=== PATIENT | female | born 1945 | race Caucasian/White ===

== ENCOUNTER → 2016-07-17 | Outpatient (CLI) | payer MEDICARE, OTHER ==
[2016-07-17 12:11] LABS: CH 31.4; CHCM 34.2; HCT 46.5 % (34.0-46.0); HDW 2.64; HGB 15.3 gm/dL (11.4-16.0); MCH 30.2 pg (25.0-35.0); MCHC 32.8 g/dL (31.0-37.0); MCV 92.1 fL (80.0-100.0); Mean Platelet Volume 7.7; RBC 5.05 m/uL (3.80-5.40); WBC 3.1 k/uL (3.8-10.6); WBC (Perox) 3.07
[2016-07-17 12:28] LABS: ALT 30 U/L (9-52); AST 27 U/L (14-36); Alkaline Phosphatase 83 U/L (38-126); Anion Gap 11 mmol/L; Blood Urea Nitrogen 12 mg/dL (7-17); Carbon Dioxide 29 mmol/L (22-30); Chloride 98 mmol/L (98-107); Glucose 99 mg/dL (74-99); Non-African American GFR(MDRD) >60 (>60 ml/min/1.73 sqM); Potassium 4.3 mmol/L (3.5-5.1); Sodium 138 mmol/L (137-145); Total Bilirubin 0.7 mg/dL (0.2-1.3); Total Protein 6.8 g/dL (6.3-8.2)
[2016-07-17 14:48] LABS: Add Differential Manual Differential
[2016-07-17 14:56] LABS: Nucleated Red Blood Cells 0 /100 WBC (0-0); Total Cells Counted 100
[2016-07-17 15:00] LABS: Manual Review Performed
== END ==
LOC: LABWHC1 11:42
PROVIDERS: ATTEND Internal Medicine Gastroenterology
DX: R94.5 Abnormal results of liver function studies (principal)
CPT/HCPCS: 36415; 80053; 85025

== ENCOUNTER → 2016-07-27 | Outpatient (CLI) | payer MEDICARE, OTHER ==
[2016-07-27 12:32] LABS: Basophils # (A) 0.1 k/uL (0-0.2); Basophils % (A) 1 %; CH 31.1; CHCM 33.5; Eosinophils # (A) 0.2 k/uL (0-0.7); Eosinophils % (A) 3 %; HCT 46.6 % (34.0-46.0); HDW 2.57; HGB 15.2 gm/dL (11.4-16.0); Luc # (Auto) 0.29; Luc % (Auto) 5; Lymphocytes % (A) 31 %; MCH 30.3 pg (25.0-35.0); MCHC 32.5 g/dL (31.0-37.0); MCV 93.2 fL (80.0-100.0); Mean Platelet Volume 7.5; Monocytes # (A) 0.5 k/uL (0-1.0); Monocytes % (A) 8 %; Neutrophils # (A) 3.4 k/uL (1.3-7.7); Neutrophils % (A) 53 %; RDW 13.1 % (11.5-15.5); WBC 6.5 k/uL (3.8-10.6); WBC (Perox) 6.75
[2016-07-27 14:06] LABS: Erythrocyte Sedimentation Rate 2 mm/hr (0-20)
== END | disposition home or self-care (01) ==
LOC: LABWHC1 11:54
PROVIDERS: ATTEND Orthopaedic Surgery
DX: Z09 Encounter for follow-up examination after completed treatment for conditions other than malignant neoplasm (principal); Z96.651 Presence of right artificial knee joint
CPT/HCPCS: 36415; 85025; 85652; 86140

== ENCOUNTER → 2016-08-02 | Outpatient (CLI) | payer MEDICARE, OTHER ==
--- NOTE | 2016-08-02 13:44 | NM ---
EXAMINATION TYPE: NM bone/joint limited DATE OF EXAM: 08/02/2016 1:39 PM COMPARISON: NONE HISTORY: Right knee pain for one year TECHNIQUE: After the intravenous administration of 25.5 mCi Tc 99m MDP. Images acquired 3 hours pos t injection. Multiple views of bilateral knees are submitted. Abnormal uptake involving the medial compartment of the left knee is compatible with osteoarthritis. There is a photopenic defect involving the right knee compatible with previous prostheses. Mild uptak e surrounding the femoral compartment likely is postsurgical. More intense area of abnormal uptake al roger the lateral margin of the tibial component of the prostheses also may BE postsurgical if there is concern for infection or loosening correlation with tagged WBC study could be obtained. IMPRESSION: 1. Probable postoperative change involving the right knee. Uptake along the lateral compartment of th e tibial component most likely is postsurgical but could be correlated clinically if there is concern for infection or loosening. Tagged WBC study could be obtained as clinically warranted. 2. Osteoarthritis involving the left knee
== END | disposition home or self-care (01) ==
LOC: RADNMMAIN 09:58
PROVIDERS: ATTEND Orthopaedic Surgery
DX: M17.12 Unilateral primary osteoarthritis, left knee (principal); Z96.651 Presence of right artificial knee joint
CPT/HCPCS: 78300; A9503

== ENCOUNTER → 2016-09-28 | Outpatient (CLI) | payer MEDICARE, OTHER ==
--- NOTE | 2016-09-28 13:27 | US ---
EXAMINATION TYPE: US liver DATE OF EXAM: 09/28/2016 9:53 AM COMPARISON: 09/23/2015 CLINICAL HISTORY: 71-year-old female K74.6 Cirrhosis of liver. TECHNIQUE: Multiple sonographic images of the right upper quadrant were obtained. FINDINGS: Liver Length: 14.2 cm CBD: 0.3 cm Right Kidney: 9.1 x 3.7 x 3.6 cm Pancreas: wnl Liver: There is a small 6 x 5 x 5 mm echogenic focus small probable hemangioma within the left hepati c lobe previously measured about 8 x 6 x 5 mm, not significantly changed. No other focal lesion is se en. Gallbladder: Surgically absent CBD: wnl Right Kidney: No hydronephrosis IMPRESSION: An echogenic lesion within the left hepatic lobe measures 6 mm, essentially unchanged from 09/23/2015 most suggestive of a hemangioma. No sonographic evidence for hepatoma.
== END | disposition home or self-care (01) ==
LOC: RADUSWWP 09:19
PROVIDERS: ATTEND Internal Medicine Gastroenterology
DX: K76.9 Liver disease, unspecified (principal)
CPT/HCPCS: 76705

== ENCOUNTER → 2016-10-20 | Outpatient (CLI) | payer MEDICARE, OTHER ==
[2016-10-20 12:52] LABS: Basophils % (A) 1 %; CH 31.6; CHCM 33.6; Eosinophils # (A) 0.2 k/uL (0-0.7); Eosinophils % (A) 4 %; HCT 45.2 % (34.0-46.0); HDW 2.33; HGB 14.9 gm/dL (11.4-16.0); Luc # (Auto) 0.16; Luc % (Auto) 3; Lymphocytes # (A) 1.8 k/uL (1.0-4.8); Lymphocytes % (A) 36 %; MCH 31.2 pg (25.0-35.0); MCV 94.6 fL (80.0-100.0); Mean Platelet Volume 8.4; Monocytes # (A) 0.4 k/uL (0-1.0); Monocytes % (A) 8 %; Neutrophils # (A) 2.4 k/uL (1.3-7.7); Neutrophils % (A) 48 %; RBC 4.78 m/uL (3.80-5.40); RDW 13.6 % (11.5-15.5); WBC (Perox) 5.12
[2016-10-20 12:53] LABS: ALT 29 U/L (9-52); AST 27 U/L (14-36); Alkaline Phosphatase 87 U/L (38-126); Anion Gap 10 mmol/L; Blood Urea Nitrogen 16 mg/dL (7-17); Calcium 9.3 mg/dL (8.4-10.2); Carbon Dioxide 25 mmol/L (22-30); Chloride 106 mmol/L (98-107); Glucose 100 mg/dL (74-99); Non-African American GFR(MDRD) >60 (>60 ml/min/1.73 sqM); Potassium 4.5 mmol/L (3.5-5.1); Sodium 141 mmol/L (137-145)
[2016-10-20 12:56] LABS: Prothrombin Time 10.2 sec (9.0-12.0)
== END | disposition home or self-care (01) ==
LOC: LABWHC1 12:24
PROVIDERS: ATTEND Internal Medicine Gastroenterology
DX: K74.60 Unspecified cirrhosis of liver (principal)
CPT/HCPCS: 36415; 80053; 82105; 85025; 85610

== ENCOUNTER → 2016-10-20 | Outpatient (CLI) | payer MEDICARE, OTHER ==
--- NOTE | 2016-10-20 14:09 | BD ---
EXAMINATION TYPE: MG DEXA axial skeleton. DATE OF EXAM: 10/20/2016 COMPARISON: NONE CLINICAL HISTORY: Postmenopausal female. Height: 5 FT 1 1/2 IN Weight: 138 FRAX RISK QUESTIONS: Alcohol (3 or more units per day): NO Family History (Parent hip fracture): NO Glucocorticoids (More than 3mos): NO (Ex: prednisone, prednisolone, methylprednisolone, dexamethasone, and hydrocortisone). History of Fracture in Adulthood: NO Secondary Osteoporosis: 1. Type 1 Diabetes: NO 2. Hyperthyroidism: NO 3. Menopause before 45: NO 4. Malnutrition: NO 5. Chronic liver disease: HIGH LIVER ENZYMES Rheumatoid Arthritis: NO Current Tobacco Use: NO RISK FACTORS HISTORY OF: Active: FAIRLY Postmenopausal woman: AGE 54 MEDICATIONS: Additional Medications: NONE EXAM MEASUREMENTS: Bone mineral densitometry was performed using the [employer]. Bone mineral density as measured about the Lumbar spine is: ----- L1-L4(G/cm2): 1.056 T Score Values are as follows: ----- L2: -0.9 ----- L3: -1.1 ----- L4: -1.1 ----- L1-L4: -1.0 BASELINE Bone mineral density about the R hip (g/cm2): 0.857 Bone mineral density about the L hip (g/cm2): 0.837 T Score values are as follows: -----R Neck: -1.3 -----L Neck: -1.4 -----R Total: -1.3 -----L Total: -1.4 BASELINE IMPRESSION: Osteopenia (T Score between -2.5 and -1 as noted by T score values There is slightly increased risk of fracture and the patient may be considered for treatment. Re-Screen 2-5 years. NOTE: T-SCORE=SD OF THE YOUNG ADULT MEAN.
--- NOTE | 2016-10-23 07:59 | MM ---
Reason for exam: screening (asymptomatic). Last mammogram was performed 1 year and 1 month ago. History: Patient is postmenopausal. Benign excisional biopsy of the left breast, July 2010. Took estrogen for 3 years. Took progesterone for 3 years. Physical Findings: A clinical breast exam by your physician is recommended on an annual basis and results should be correlated with mammographic findings. MG Screening Mammo w CAD Bilateral CC and MLO view(s) were taken. Prior study comparison: September 23, 2015, bilateral MG 3d screening mammo w/cad. May 20, 2014, bilateral MG screening mammo w CAD. There are scattered fibroglandular densities. Finding: There are typically benign calcifications. No significant changes in finding since September 23, 2015 and May 20, 2014. ASSESSMENT: Benign, BI-RAD 2 RECOMMENDATION: Routine screening mammogram of both breasts in 1 year.
== END | disposition home or self-care (01) ==
LOC: RADMAMWWP 12:39
PROVIDERS: ATTEND Family Medicine
DX: Z12.31 Encounter for screening mammogram for malignant neoplasm of breast (principal); M85.80 Other specified disorders of bone density and structure, unspecified site; Z78.0 Asymptomatic menopausal state
CPT/HCPCS: 77080; G0202

== ENCOUNTER → 2017-01-19 | Outpatient (CLI) | payer MEDICARE, OTHER ==
[2017-01-19 09:20] LABS: Basophils % (A) 1 %; CH 30.8; CHCM 33.5; Eosinophils # (A) 0.2 k/uL (0-0.7); Eosinophils % (A) 5 %; HCT 45.6 % (34.0-46.0); HDW 2.42; HGB 15.3 gm/dL (11.4-16.0); Luc # (Auto) 0.16; Luc % (Auto) 3; Lymphocytes # (A) 1.7 k/uL (1.0-4.8); Lymphocytes % (A) 36 %; MCH 30.9 pg (25.0-35.0); MCHC 33.5 g/dL (31.0-37.0); MCV 92.4 fL (80.0-100.0); Mean Platelet Volume 7.1; Monocytes # (A) 0.3 k/uL (0-1.0); Monocytes % (A) 7 %; Neutrophils # (A) 2.2 k/uL (1.3-7.7); Neutrophils % (A) 48 %; RBC 4.93 m/uL (3.80-5.40); RDW 13.3 % (11.5-15.5); WBC 4.7 k/uL (3.8-10.6); WBC (Perox) 5.15
[2017-01-19 09:33] LABS: ALT 32 U/L (9-52); AST 24 U/L (14-36); Alkaline Phosphatase 81 U/L (38-126); Anion Gap 9 mmol/L; Blood Urea Nitrogen 13 mg/dL (7-17); Calcium 9.4 mg/dL (8.4-10.2); Carbon Dioxide 27 mmol/L (22-30); Chloride 104 mmol/L (98-107); Glucose 93 mg/dL (74-99); Non-African American GFR(MDRD) >60 (>60 ml/min/1.73 sqM); Potassium 4.5 mmol/L (3.5-5.1); Sodium 140 mmol/L (137-145); Total Bilirubin 1.2 mg/dL (0.2-1.3); Total Protein 6.9 g/dL (6.3-8.2)
[2017-01-19 09:39] LABS: Prothrombin Time 10.3 sec (9.0-12.0)
== END | disposition home or self-care (01) ==
LOC: LABWHC1 08:52
PROVIDERS: ATTEND Internal Medicine Gastroenterology
DX: K74.60 Unspecified cirrhosis of liver (principal)
CPT/HCPCS: 36415; 80053; 82105; 85025; 85610

== ENCOUNTER → 2017-05-22 | Outpatient (CLI) | payer MEDICARE, OTHER ==
[2017-05-22 11:51] LABS: ALT 37 U/L (9-52); AST 24 U/L (14-36); Albumin 4.3 g/dL (3.5-5.0); Alkaline Phosphatase 74 U/L (38-126); Anion Gap 9 mmol/L; Blood Urea Nitrogen 14 mg/dL (7-17); Calcium 9.7 mg/dL (8.4-10.2); Carbon Dioxide 28 mmol/L (22-30); Chloride 102 mmol/L (98-107); Glucose 96 mg/dL (74-99); Potassium 4.6 mmol/L (3.5-5.1); Sodium 139 mmol/L (137-145); Total Bilirubin 1.1 mg/dL (0.2-1.3); Total Protein 6.7 g/dL (6.3-8.2)
[2017-05-22 12:25] LABS: HCT 43.8 % (34.0-46.0); HGB 14.4 gm/dL (11.4-16.0); MCH 30.4 pg (25.0-35.0); MCHC 32.8 g/dL (31.0-37.0); MCV 92.5 fL (80.0-100.0); Mean Platelet Volume 8.1; Platelet Count 105 k/uL (150-450); RBC 4.74 m/uL (3.80-5.40); WBC 4.9 k/uL (3.8-10.6)
== END | disposition home or self-care (01) ==
LOC: LABWHC1 11:03
PROVIDERS: ATTEND Internal Medicine Gastroenterology
DX: K74.60 Unspecified cirrhosis of liver (principal)
CPT/HCPCS: 36415; 80053; 82105; 85027; 85610

== ENCOUNTER → 2017-07-20 | Outpatient (CLI) | payer MEDICARE, OTHER ==
--- NOTE | 2017-07-20 12:50 | XR ---
Lumbosacral spine HISTORY: Back pain 5 views of the lumbosacral spine Lumbar vertebral bodies show preserved height. Bone mineralization is reduced. No evident spondylolys is. Surgical clips noted incidentally in the right upper quadrant. There is loss of disc height prese nt at L5-S1. Anterolisthesis grade 1 L4-5. Sclerosis present in the posterior elements of the lower l umbar spine. IMPRESSION: Degenerative disc disease and spondylolisthesis. Facet arthropathy and osteopenia. Postop changes.
== END ==
LOC: RADXRMAIN 12:22
PROVIDERS: ATTEND Family Medicine
DX: M51.37 Other intervertebral disc degeneration, lumbosacral region (principal); M43.16 Spondylolisthesis, lumbar region; M46.86 Other specified inflammatory spondylopathies, lumbar region; M85.88 Other specified disorders of bone density and structure, other site; Z98.890 Other specified postprocedural states
CPT/HCPCS: 72110

== ENCOUNTER → 2017-09-03 | Outpatient (CLI) | payer MEDICARE, OTHER ==
--- NOTE | 2017-09-03 09:15 | US ---
EXAMINATION TYPE: US liver DATE OF EXAM: 09/03/2017 COMPARISON: 09/28/2016 and 03/24/2014 CLINICAL HISTORY: K74.60 Cirrhosis of Liver. EXAM MEASUREMENTS: Liver Length: 11.6 cm Gallbladder Wall: Surgically absent CBD: 0.2 cm Right Kidney: 9.5 x 3.6 x 4.8 cm Pancreas: wnl Liver: hyperechoic focus in left lobe, seen previously measuring 0.5 x 0.3 x 0.8cm, (this measured 6 x 5 x 5 mm on the exam of 09/28/2016 and measured about 8 x 6 x 5 mm on the exam of 03/24/2014). Given differences in size measurement this is similar to priors. Hepatope joelle flow noted. There is a slightly coarsened heterogenous echotexture of the hepatic parenchyma. Thi s finding somewhat limits evaluation for masses. Gallbladder: Surgically absent Evidence for sonographic Heath's sign: no CBD: wnl Right Kidney: wnl IMPRESSION: 1. Overall similar size of the solitary hyperechoic left hepatic lobe focus in comparison to exam of 03/24/2014 suggesting a benign etiology such as a hemangioma. 2. Slightly coarsened hepatic echotexture compatible with the patient's known underlying hepatocellul ar disease. No new masses are seen.
[2017-09-03 10:10] LABS: HCT 45.2 % (34.0-46.0); HGB 15.2 gm/dL (11.4-16.0); MCH 30.4 pg (25.0-35.0); MCHC 33.6 g/dL (31.0-37.0); MCV 90.6 fL (80.0-100.0); Mean Platelet Volume 8.7; Platelet Count 141 k/uL (150-450); RBC 4.99 m/uL (3.80-5.40); WBC 5.1 k/uL (3.8-10.6)
[2017-09-03 10:31] LABS: Albumin 4.3 g/dL (3.5-5.0); Calcium 9.9 mg/dL (8.4-10.2); Potassium 4.9 mmol/L (3.5-5.1); Total Protein 6.7 g/dL (6.3-8.2)
== END ==
LOC: RADUSWWP 08:14
PROVIDERS: ATTEND Internal Medicine Gastroenterology
DX: K74.60 Unspecified cirrhosis of liver (principal)
CPT/HCPCS: 76705; 80053; 82105; 85027; 85610

== ENCOUNTER → 2017-10-22 | Outpatient (CLI) | payer MEDICARE, OTHER | END | disposition home or self-care (01) | LOC: LABWHC1 11:15 | PROVIDERS: ATTEND Podiatrist Foot & Ankle Surgery | DX: N19 Unspecified kidney failure (principal) | CPT/HCPCS: 36415; 82565; 84520 ==

== ENCOUNTER → 2017-10-24 | Outpatient (CLI) | payer MEDICARE, OTHER ==
--- NOTE | 2017-10-24 13:17 | MM ---
Reason for exam: screening (asymptomatic). Last mammogram was performed 1 year ago. History: Patient is postmenopausal. Benign excisional biopsy of the left breast, July 2010. Took estrogen for 3 years. Took progesterone for 3 years. Physical Findings: A clinical breast exam by your physician is recommended on an annual basis and results should be correlated with mammographic findings. MG 3D Screening Mammo W/Cad Bilateral CC and MLO view(s) were taken. Prior study comparison: October 20, 2016, bilateral MG screening mammo w CAD. September 23, 2015, bilateral MG 3d screening mammo w/cad. There are scattered fibroglandular densities. There is a stable right retroareolar mass. Benign appearing bilateral calcifications. No suspicious abnormality. Post biopsy change on the left breast. No significant changes when compared with prior studies. ASSESSMENT: Benign, BI-RAD 2 RECOMMENDATION: Routine screening mammogram of both breasts in 1 year.
== END | disposition home or self-care (01) ==
LOC: RADMAMWWP 09:53
PROVIDERS: ATTEND Family Medicine
DX: Z12.31 Encounter for screening mammogram for malignant neoplasm of breast (principal)
CPT/HCPCS: 77063; 77067

== ENCOUNTER 2017-10-26 09:19 | Day surgery (SDC) | payer MEDICARE, OTHER ==
[2017-10-24 09:31] VITALS: BMI 25.6
[~2017-10-26 09:19] MED LIST: LACTATED RINGERS 1,000 ML IV SCH
[2017-10-26 10:00] VITALS: RESP 16; TEMP 97.8
[2017-10-26] MEDS ORDERED: LIDOCAINE 1% 20 ML VIAL (10MG/ML) FOR IV START INTRADERMA ONE (10:01)
[2017-10-26] MEDS ORDERED: LIDOCAINE 1% INJ 10MG/ML (20 ML MDV) ONE (10:34)
[2017-10-26] MEDS ORDERED: PROPOFOL 10 MG/ML 20 ML VIAL IV ONE (10:34)
--- NOTE | 2017-10-26 10:56 | P.PCN ---
Date of Procedure: 10/26/17 Procedure(s) Performed: Brief history: Patient is a pleasant 72-year-old white female, scheduled for an elective upper endoscopy as well as colonoscopy as a part of evaluation of liver cirrhosis and screening for colorectal neoplasia. Procedure performed: Esophagogastroduodenoscopy with biopsy Colonoscopy Preoperative diagnosis: Liver cirrhosis/screening for esophageal varices. Screening for colon cancer Anesthesia: MAC Procedure: After informed consent was obtained from the patient was brought into the endoscopy unit and IV sedation was administered by anesthesia under continuous monitoring. Initially upper endoscopy was done. The Olympus GF 160 video endoscope was inserted inserted into the mouth and esophagus intubated without any difficulty and was gradually advanced into the stomach and duodenum and carefully examined. The bulb and second part of the duodenum appeared normal. The scope was then withdrawn into the stomach adequately insufflated with air and upon careful examination the antrum had mild gastritis and biopsies were done from this area. The body, cardia and fundus appeared normal. The scope was then withdrawn into the esophagus. small hiatal hernia noted. The GE junction was located at 40 cm to the incisors. It appeared regular witsuperficial erosions consistent with LA grade B reflux esophagitis. Rest of the esophagus appeared normal. Patient tolerated the procedure well. At this time the patient continued to remain sedation. Initial digital rectal examination was normal. Olympus CF 160 video colonoscope was then inserted into the rectum and gradually advanced to the cecum without any difficulty. Careful examination was performed as the scope was gradually being withdrawn. The prep was excellent. The cecum, ascending colon, transverse colon, descending colon, sigmoid colon and rectum appeared normal. scattered sigmoid diverticulosis seen. Retroflexion was performed in the rectum and no lesions were noted. Patient tolerated the procedure well. Impression: 1. Upper endoscopy revealed mild gastritis, small hiatal hernia and grade B reflux esophagitis 2. Colonoscopy revealed scattered sigmoid diverticulosis. Recommendations: Findings of this examination were discussed with the patient as well as her family. She was advised to follow with the biopsy results. She can have a repeat colonoscopy in 10 years.
[2017-10-26 11:31] VITALS: BP 134/68; PULSE 77
== END 2017-10-26 11:44 | disposition home or self-care (01) ==
LOC: ORWHC2ENDO 09:19
PROVIDERS: ATTEND Internal Medicine Gastroenterology
DX: Z12.11 Encounter for screening for malignant neoplasm of colon (principal); K29.70 Gastritis, unspecified, without bleeding; K44.9 Diaphragmatic hernia without obstruction or gangrene; K21.0 Gastro-esophageal reflux disease with esophagitis; K57.30 Diverticulosis of large intestine without perforation or abscess without bleeding; K74.60 Unspecified cirrhosis of liver; K76.0 Fatty (change of) liver, not elsewhere classified; J44.9 Chronic obstructive pulmonary disease, unspecified; Z79.82 Long term (current) use of aspirin; Z79.899 Other long term (current) drug therapy; Z88.6 Allergy status to analgesic agent; Z88.0 Allergy status to penicillin; Z88.2 Allergy status to sulfonamides; Z88.8 Allergy status to other drugs, medicaments and biological substances
CPT/HCPCS: 88305; 43239; J2001; J2704; G0121; 45378

== ENCOUNTER → 2017-12-11 | Outpatient (CLI) | payer MEDICARE, OTHER ==
[2017-12-11 11:14] LABS: HCT 43.4 % (34.0-46.0); HGB 14.5 gm/dL (11.4-16.0); MCH 30.8 pg (25.0-35.0); MCHC 33.5 g/dL (31.0-37.0); Mean Platelet Volume 7.4; Platelet Count 144 k/uL (150-450); RBC 4.72 m/uL (3.80-5.40); RDW 13.5 % (11.5-15.5); WBC 4.9 k/uL (3.8-10.6)
[2017-12-11 11:15] LABS: Prothrombin Time 9.7 sec (9.0-12.0)
[2017-12-11 11:23] LABS: ALT 31 U/L (9-52); AST 24 U/L (14-36); Albumin 4.1 g/dL (3.5-5.0); Alkaline Phosphatase 95 U/L (38-126); Anion Gap 8 mmol/L; Blood Urea Nitrogen 14 mg/dL (7-17); Calcium 9.6 mg/dL (8.4-10.2); Carbon Dioxide 27 mmol/L (22-30); Chloride 106 mmol/L (98-107); Glucose 95 mg/dL (74-99); Potassium 4.8 mmol/L (3.5-5.1); Sodium 141 mmol/L (137-145); Total Bilirubin 0.5 mg/dL (0.2-1.3); Total Protein 6.3 g/dL (6.3-8.2)
== END | disposition home or self-care (01) ==
LOC: LABWHC1 10:28
PROVIDERS: ATTEND Internal Medicine Gastroenterology
DX: K74.60 Unspecified cirrhosis of liver (principal)
CPT/HCPCS: 36415; 80053; 82105; 85027; 85610

== ENCOUNTER → 2018-02-25 | Outpatient (CLI) | payer MEDICARE, OTHER ==
[2018-02-25 15:09] LABS: HCT 42.7 % (34.0-46.0); HGB 14.8 gm/dL (11.4-16.0); MCH 31.4 pg (25.0-35.0); MCHC 34.6 g/dL (31.0-37.0); MCV 90.7 fL (80.0-100.0); Mean Platelet Volume 8.3; Platelet Count 136 k/uL (150-450); RBC 4.71 m/uL (3.80-5.40); RDW 13.3 % (11.5-15.5); WBC 6.5 k/uL (3.8-10.6)
[2018-02-25 15:17] LABS: ALT 28 U/L (9-52); AST 25 U/L (14-36); Albumin 4.3 g/dL (3.5-5.0); Alkaline Phosphatase 96 U/L (38-126); Anion Gap 10 mmol/L; Blood Urea Nitrogen 14 mg/dL (7-17); Calcium 9.7 mg/dL (8.4-10.2); Carbon Dioxide 25 mmol/L (22-30); Chloride 104 mmol/L (98-107); Glucose 101 mg/dL (74-99); Potassium 4.5 mmol/L (3.5-5.1); Prothrombin Time 9.7 sec (9.0-12.0); Sodium 139 mmol/L (137-145); Total Bilirubin 0.6 mg/dL (0.2-1.3); Total Protein 7.1 g/dL (6.3-8.2)
== END | disposition home or self-care (01) ==
LOC: LABWHC1 14:47
PROVIDERS: ATTEND Internal Medicine Gastroenterology
DX: K74.60 Unspecified cirrhosis of liver (principal)
CPT/HCPCS: 36415; 80053; 82105; 85027; 85610

== ENCOUNTER → 2018-07-02 | Outpatient (CLI) | payer MEDICARE, OTHER ==
[2018-07-02 14:33] LABS: HCT 44.6 % (34.0-46.0); HGB 14.5 gm/dL (11.4-16.0); MCH 30.7 pg (25.0-35.0); MCHC 32.6 g/dL (31.0-37.0); MCV 94.2 fL (80.0-100.0); Mean Platelet Volume 8.3; Platelet Count 120 k/uL (150-450); RBC 4.73 m/uL (3.80-5.40); RDW 13.4 % (11.5-15.5); WBC 4.9 k/uL (3.8-10.6)
[2018-07-02 14:40] LABS: INR 0.9 (<1.2); Prothrombin Time 9.9 sec (9.0-12.0)
[2018-07-02 18:52] LABS: Albumin 4.5 g/dL (3.80-4.90); Albumin/Globulin Ratio 2.37 (1.60-3.17); Anion Gap 5.1 mmol/L (4.00-12.00); Calcium 9.4 mg/dL (8.7-10.3); Carbon Dioxide 29.9 mmol/L (21.6-31.8); Globulin 1.9 g/dL (1.6-3.3); Potassium 4.7 mmol/L (3.5-5.5); Total Bilirubin 0.9 mg/dL (0.3-1.2); Total Protein 6.4 g/dL (6.2-8.2)
== END | disposition home or self-care (01) ==
LOC: LABWHC1 12:55
PROVIDERS: ATTEND Internal Medicine Gastroenterology
DX: K74.60 Unspecified cirrhosis of liver (principal)
CPT/HCPCS: 36415; 80053; 82105; 85027; 85610

== ENCOUNTER → 2018-09-03 | Outpatient (CLI) | payer MEDICARE, OTHER ==
--- NOTE | 2018-09-03 08:55 | US ---
EXAMINATION TYPE: US liver DATE OF EXAM: 09/03/2018 COMPARISON: US CLINICAL HISTORY: K74.60 Cirrhosis of Liver. H/O cirrhosis EXAM MEASUREMENTS: Liver Length: 13.2 cm CBD: 0.5 cm Right Kidney: 10.0 x 4.0 x 4.7 cm Pancreas: wnl Liver: Slightly heterogeneous, otherwise appeared wnl Gallbladder: Surgically absent Evidence for sonographic Heath's sign: No CBD: wnl Right Kidney: wnl IMPRESSION: 1. Mild fatty hepatic infiltration suggested versus diffuse hepatocellular disease..
== END | disposition home or self-care (01) ==
LOC: RADUSWWP 08:21
PROVIDERS: ATTEND Internal Medicine Gastroenterology
DX: K74.60 Unspecified cirrhosis of liver (principal)
CPT/HCPCS: 76705

== ENCOUNTER → 2018-10-25 | Outpatient (CLI) | payer MEDICARE, OTHER ==
--- NOTE | 2018-10-28 13:26 | MM ---
Reason for exam: screening (asymptomatic). Last mammogram was performed 1 year ago. History: Patient is postmenopausal. Benign excisional biopsy of the left breast, July 2010. Took estrogen for 3 years. Took progesterone for 3 years. Physical Findings: A clinical breast exam by your physician is recommended on an annual basis and results should be correlated with mammographic findings. MG 3D Screening Mammo W/Cad Bilateral CC and MLO view(s) were taken. Prior study comparison: October 24, 2017, bilateral MG 3d screening mammo w/cad. October 20, 2016, bilateral MG screening mammo w CAD. There are scattered fibroglandular densities. No significant changes when compared with prior studies. ASSESSMENT: Negative, BI-RAD 1 RECOMMENDATION: Routine screening mammogram of both breasts in 1 year.
== END | disposition home or self-care (01) ==
LOC: RADMAMWWP 14:34
PROVIDERS: ATTEND Family Medicine
DX: Z12.31 Encounter for screening mammogram for malignant neoplasm of breast (principal)
CPT/HCPCS: 77063; 77067

== ENCOUNTER → 2019-01-24 | Outpatient (CLI) | payer MEDICARE, OTHER ==
[2019-01-24 13:14] LABS: HGB 14.6 gm/dL (11.4-16.0); MCH 32.2 pg (25.0-35.0); MCHC 34.8 g/dL (31.0-37.0); MCV 92.6 fL (80.0-100.0); Mean Platelet Volume 8.2; Platelet Count 127 k/uL (150-450); RBC 4.53 m/uL (3.80-5.40); RDW 13.5 % (11.5-15.5); WBC 6.6 k/uL (3.8-10.6)
[2019-01-24 13:16] LABS: INR 0.9 (<1.2); Prothrombin Time 9.8 sec (9.0-12.0)
[2019-01-24 19:15] LABS: Albumin 4.5 g/dL (3.80-4.90); Albumin/Globulin Ratio 2.5 (1.60-3.17); Anion Gap 9.9 mmol/L (4.00-12.00); BUN/Creat Ratio 15.56 Ratio (12.00-20.00); Calcium 9.6 mg/dL (8.7-10.3); Carbon Dioxide 28.1 mmol/L (21.6-31.8); Globulin 1.8 g/dL (1.6-3.3); Non-African American GFR(CKD) 63.9 (60.0-200.0); Potassium 4.3 mmol/L (3.5-5.5); Total Bilirubin 0.8 mg/dL (0.2-1.2); Total Protein 6.3 g/dL (6.2-8.2)
== END | disposition home or self-care (01) ==
LOC: LABWHC1 11:43
PROVIDERS: ATTEND Internal Medicine Gastroenterology
DX: K74.60 Unspecified cirrhosis of liver (principal)
CPT/HCPCS: 36415; 80053; 82105; 85027; 85610

== ENCOUNTER → 2019-04-09 | Outpatient (CLI) | payer MEDICARE, OTHER ==
--- NOTE | 2019-04-09 08:03 | US ---
EXAMINATION TYPE: US abdomen limited DATE OF EXAM: 04/09/2019 COMPARISON: Ultrasound liver September 03, 2018 CLINICAL HISTORY: cirrhosis unspecified,K74.60. Cirrhosis, hx of cholecystectomy EXAM MEASUREMENTS: Liver Length: 14.9 cm CBD: 0.5 cm Right Kidney: 9.5 x 3.9 x 4.6 cm Pancreas: visualized portions wnl, tail limited by overlying midline bowel gas Liver: mildly heterogeneous Gallbladder: surgically absent Evidence for sonographic Heath's sign: no CBD: wnl Right Kidney: wnl Visualized liver remains mildly heterogeneous without new mass or intrahepatic ductal dilatation. No surrounding ascites. IMPRESSION: Stable findings.
== END | disposition home or self-care (01) ==
LOC: RADUSWWP 07:22
PROVIDERS: ATTEND Internal Medicine Gastroenterology
DX: K74.60 Unspecified cirrhosis of liver (principal)
CPT/HCPCS: 76705

== ENCOUNTER → 2019-07-01 | Outpatient (CLI) | payer MEDICARE, OTHER ==
[2019-07-01 10:03] LABS: HCT 45.5 % (34.0-46.0); HGB 14.9 gm/dL (11.4-16.0); MCH 30.3 pg (25.0-35.0); MCHC 32.6 g/dL (31.0-37.0); MCV 92.9 fL (80.0-100.0); Mean Platelet Volume 8.8; Platelet Count 124 k/uL (150-450); RDW 12.9 % (11.5-15.5); WBC 4.8 k/uL (3.8-10.6)
[2019-07-01 10:13] LABS: INR 0.9 (<1.2); Prothrombin Time 9.9 sec (9.0-12.0)
[2019-07-01 16:33] LABS: African American GFR (CKD) 85.4 (60.0-200.0); Albumin 4.5 g/dL (3.80-4.90); Albumin/Globulin Ratio 2.81 (1.60-3.17); Anion Gap 6.8 mmol/L (4.00-12.00); BUN/Creat Ratio 16.25 Ratio (12.00-20.00); Calcium 9.6 mg/dL (8.7-10.3); Carbon Dioxide 28.2 mmol/L (21.6-31.8); Globulin 1.6 g/dL (1.6-3.3); Non-African American GFR(CKD) 73.7 (60.0-200.0); Potassium 4.9 mmol/L (3.5-5.5); Total Protein 6.1 g/dL (6.2-8.2)
== END | disposition home or self-care (01) ==
LOC: LABWHC1 09:30
PROVIDERS: ATTEND Nurse Practitioner
DX: K74.60 Unspecified cirrhosis of liver (principal); Z51.81 Encounter for therapeutic drug level monitoring
CPT/HCPCS: 36415; 80053; 82105; 85027; 85610

== ENCOUNTER → 2019-10-01 | Outpatient (CLI) | payer MEDICARE, OTHER ==
--- NOTE | 2019-10-01 08:22 | US ---
EXAMINATION TYPE: US abdomen limited DATE OF EXAM: 10/01/2019 COMPARISON: 04/09/2019, 09/03/2018 and 09/03/2017 CLINICAL HISTORY: K74.60 Unspecified Cirrhosis of liver. EXAM MEASUREMENTS: Liver Length: 11.3 cm Gallbladder Wall: Surgically absent CBD: 0.2 cm Right Kidney: 9.2 x 3.7 x 4.3 cm Pancreas: partially obscured by bowel gas, portions visualized wnl Liver: Very slightly coarsened hepatic echotexture is more subtle on the current exam than on the pr iors. The previously seen hyperechoic focus in the left lobe of the liver measuring 8 mm on the exam of 09/03/2017 is not visualized on the most recent exams. Gallbladder: Surgically absent Evidence for sonographic Heath's sign: No CBD: wnl Right Kidney: wnl IMPRESSION: Very mildly coarsened hepatic echotexture in this patient with known underlying cirrhosis . The previously seen subcentimeter hepatic lesion on the exam of 2018 is not seen on the most recent exams.
[2019-10-01 09:07] LABS: HCT 46.1 % (34.0-46.0); HGB 14.9 gm/dL (11.4-16.0); MCH 30.6 pg (25.0-35.0); MCHC 32.3 g/dL (31.0-37.0); MCV 94.7 fL (80.0-100.0); Mean Platelet Volume 9.4; Platelet Count 131 k/uL (150-450); RBC 4.87 m/uL (3.80-5.40); RDW 13.2 % (11.5-15.5); WBC 5.1 k/uL (3.8-10.6)
[2019-10-01 09:36] LABS: Albumin 4.4 g/dL (3.5-5.0); Calcium 9.7 mg/dL (8.4-10.2); Potassium 4.4 mmol/L (3.5-5.1); Total Bilirubin 1.1 mg/dL (0.2-1.3); Total Protein 7.1 g/dL (6.3-8.2)
== END | disposition home or self-care (01) ==
LOC: RADUSWWP 07:46
PROVIDERS: ATTEND Internal Medicine Gastroenterology
DX: K74.60 Unspecified cirrhosis of liver (principal)
CPT/HCPCS: 76705; 80053; 82105; 85027; 85610

== ENCOUNTER → 2020-01-30 | Outpatient (CLI) | payer MEDICARE, OTHER ==
[2020-01-30 13:05] LABS: HCT 43.3 % (34.0-46.0); HGB 14.5 gm/dL (11.4-16.0); MCH 30.9 pg (25.0-35.0); MCHC 33.4 g/dL (31.0-37.0); MCV 92.4 fL (80.0-100.0); Mean Platelet Volume 9.1; Platelet Count 130 k/uL (150-450); RBC 4.69 m/uL (3.80-5.40); RDW 13.8 % (11.5-15.5); WBC 5.9 k/uL (3.8-10.6)
[2020-01-30 18:37] LABS: INR <0.90 (0.90-1.11); Prothrombin Time 9.9 sec (9.9-11.9)
[2020-01-30 19:20] LABS: African American GFR (CKD) 84.8 (60.0-200.0); Albumin 4.5 g/dL (3.80-4.90); Albumin/Globulin Ratio 2.37 (1.60-3.17); Anion Gap 7.8 mmol/L (4.00-12.00); BUN/Creat Ratio 17.5 Ratio (12.00-20.00); Calcium 9.5 mg/dL (8.7-10.3); Carbon Dioxide 27.2 mmol/L (21.6-31.8); Globulin 1.9 g/dL (1.6-3.3); Non-African American GFR(CKD) 73.1 (60.0-200.0); Potassium 4.3 mmol/L (3.5-5.5); Total Bilirubin 0.8 mg/dL (0.3-1.2); Total Protein 6.4 g/dL (6.2-8.2)
== END | disposition home or self-care (01) ==
LOC: LABWHC1 11:33
PROVIDERS: ATTEND Internal Medicine Gastroenterology
DX: K74.60 Unspecified cirrhosis of liver (principal)
CPT/HCPCS: 36415; 80053; 82105; 85027; 85610

== ENCOUNTER → 2020-03-09 | Outpatient (CLI) | payer MEDICARE, OTHER ==
--- NOTE | 2020-03-09 11:40 | BD ---
EXAMINATION TYPE: Axial Bone Density DATE OF EXAM: 03/09/2020 COMPARISON: 10/20/2016 CLINICAL HISTORY: Postmenopausal female. Height: 61.5 IN Weight: 141 LBS FRAX RISK QUESTIONS: Secondary Osteoporosis: 5. Chronic liver disease: YES FATTY LIVER SINCE 2014 RISK FACTORS HISTORY OF: Active: YES Diet low in dairy products/other sources of calcium: YES Postmenopausal woman: AGE 54 Take estrogen and/or progesterone medications: NOT NOW How long: PREVIOUSLY TOOK FOR 2 YEARS MEDICATIONS: Additional Medications: CALCIUM, VIT D, EXAM MEASUREMENTS: Bone mineral densitometry was performed using the [employer] System. Bone mineral density as measured about the Lumbar spine is: ----- L1-L4(G/cm2): 1.144 T Score Values are as follows: ----- L2: -0.5 ----- L3: -0.2 ----- L4: -0.2 ----- L1-L4: -0.3 Bone mineral density has: Increased 8.2% since study of: 10/20/2016 Bone mineral density about the R hip (g/cm2): 0.863 Bone mineral density about the L hip (g/cm2): 0.813 T Score values are as follows: -----R Neck: -1.3 -----L Neck: -1.6 -----R Total: -1.1 -----L Total: -1.5 Bone mineral density has: Increased 0.5% since study of: 10/20/2016 IMPRESSION: Osteopenia (T Score between -2.5 and -1) remains present. There remains slightly increased risk of fracture and the patient may be considered for treatment. Re-Screen 2-5 years. NOTE: T-SCORE=SD OF THE YOUNG ADULT MEAN.
--- NOTE | 2020-03-10 11:58 | MM ---
Reason for exam: screening (asymptomatic). Last mammogram was performed 1 year and 4 months ago. History: Patient is postmenopausal. Benign excisional biopsy of the left breast, July 2010. Took estrogen for 3 years. Took progesterone for 3 years. Physical Findings: A clinical breast exam by your physician is recommended on an annual basis and results should be correlated with mammographic findings. MG 3D Screening Mammo W/Cad Bilateral CC and MLO view(s) were taken. Prior study comparison: October 25, 2018, bilateral MG 3d screening mammo w/cad. October 24, 2017, bilateral MG 3d screening mammo w/cad. The breast tissue is heterogeneously dense. This may lower the sensitivity of mammography. There are benign appearing round calcifications bilaterally. There is no discrete abnormality. ASSESSMENT: Benign, BI-RAD 2 RECOMMENDATION: Routine screening mammogram of both breasts in 1 year.
== END | disposition home or self-care (01) ==
LOC: RADMAMWWP 08:14
PROVIDERS: ATTEND Family Medicine
DX: Z12.31 Encounter for screening mammogram for malignant neoplasm of breast (principal); M85.80 Other specified disorders of bone density and structure, unspecified site; Z78.0 Asymptomatic menopausal state
CPT/HCPCS: 77063; 77067; 77080

== ENCOUNTER → 2020-03-25 | Outpatient (CLI) | payer MEDICARE, OTHER ==
[2020-03-25 12:59] LABS: INR 0.9 (<1.2); Prothrombin Time 9.7 sec (9.0-12.0)
[2020-03-25 13:08] LABS: Albumin 4.2 g/dL (3.5-5.0); Calcium 9.5 mg/dL (8.4-10.2); Potassium 4.4 mmol/L (3.5-5.1); Total Bilirubin 0.8 mg/dL (0.2-1.3); Total Protein 6.9 g/dL (6.3-8.2)
[2020-03-25 13:19] LABS: HCT 45.6 % (34.0-46.0); MCH 31.4 pg (25.0-35.0); Mean Platelet Volume 9.4; Platelet Count 128 k/uL (150-450); RDW 13.4 % (11.5-15.5); WBC 5.8 k/uL (3.8-10.6)
--- NOTE | 2020-03-25 14:11 | XR ---
EXAMINATION TYPE: XR chest 2V DATE OF EXAM: 03/25/2020 COMPARISON: NONE TECHNIQUE: PA and lateral views submitted. HISTORY: Presurgical FINDINGS: The lungs are clear and there is no pneumothorax, pleural effusion, or focal pneumonia. No overt fa ilure. Surgical clips in the abdomen. Heart size normal. IMPRESSION: 1. No acute process.
== END | disposition home or self-care (01) ==
LOC: LABPAT 11:56
PROVIDERS: ATTEND Nurse Practitioner
DX: Z01.818 Encounter for other preprocedural examination (principal)
CPT/HCPCS: 36415; 71046; 80053; 85027; 85610; 93005

== ENCOUNTER → 2020-04-30 | Outpatient (CLI) | payer MEDICARE, OTHER ==
--- NOTE | 2020-04-30 09:13 | US ---
EXAMINATION TYPE: US liver DATE OF EXAM: 04/30/2020 COMPARISON: US 2019 CLINICAL HISTORY: K74.60 CIRRHOSIS OF LIVER. EXAM MEASUREMENTS: Liver Length: 14.0 cm CBD: 0.6 cm Right Kidney: 9.2 x 3.8 x 4.5 cm Pancreas: wnl Liver: mildy course echotexture Gallbladder: surgically absent Evidence for sonographic Heath's sign: no CBD: wnl Right Kidney: wnl IMPRESSION: 1. Normal right upper quadrant ultrasound
== END | disposition home or self-care (01) ==
LOC: RADUSWWP 08:08
PROVIDERS: ATTEND Internal Medicine Gastroenterology
DX: K74.60 Unspecified cirrhosis of liver (principal)
CPT/HCPCS: 76705

== ENCOUNTER → 2020-08-05 | Outpatient (CLI) | payer MEDICARE, OTHER ==
[2020-08-05 14:29] LABS: Basophils % (A) 1 %; Eosinophils % (A) 0 %; HCT 44.2 % (34.0-46.0); HGB 14.3 gm/dL (11.4-16.0); Lymphocytes # (A) 0.8 k/uL (1.0-4.8); Lymphocytes % (A) 14 %; MCH 30.3 pg (25.0-35.0); MCHC 32.3 g/dL (31.0-37.0); Mean Platelet Volume 8.1; Monocytes # (A) 0.2 k/uL (0-1.0); Monocytes % (A) 3 %; Neutrophils # (A) 4.4 k/uL (1.3-7.7); Neutrophils % (A) 82 %; Platelet Count 169 k/uL (150-450); RDW 13.5 % (11.5-15.5); WBC 5.3 k/uL (3.8-10.6)
== END | disposition home or self-care (01) ==
LOC: LABPAT 12:16
PROVIDERS: ATTEND Orthopaedic Surgery
DX: Z01.812 Encounter for preprocedural laboratory examination (principal); M17.12 Unilateral primary osteoarthritis, left knee
CPT/HCPCS: 85025; 87070

== ENCOUNTER 2020-08-17 08:18 | Day surgery (SDC) | payer MEDICARE, OTHER ==
[2020-08-13 08:31] VITALS: BMI 24.8
--- NOTE | 2020-08-16 11:15 | HP ---
HISTORY AND PHYSICAL CHIEF COMPLAINT: Left knee pain. HISTORY OF PRESENT ILLNESS: Patient is a 74-year-old retired female who presents with progressive left knee pain for the past several years, worsening recently. She notes medial pain, swelling, and stiffness. She has a difficult time with normal weightbearing activities that limit her. She is also having significant night symptoms. She rates her pain 8/10. She has tried previous injections along with medications for the left knee. She had a previous arthroscopy in 2005. PAST MEDICAL HISTORY: Significant for asthma, liver disease, and arthritis. PAST SURGICAL HISTORY: Significant for right total knee arthroplasty and left knee arthroscopy. CURRENT MEDICATIONS: Aspirin and Luz. ALLERGIES: She has allergies to PENICILLIN and SULFA. FAMILY HISTORY: Significant for heart disease. SOCIAL HISTORY: Significant previous tobacco use. REVIEW OF SYSTEMS: Sixteen-point review of systems otherwise is reviewed and is noncontributory. PHYSICAL EXAMINATION: On examination, the patient is approximately 5 feet 2 inches, 137 pounds of mesomorphic habitus. HEENT exam is nonfocal. Neck is supple. She has painless passive motion of the left hip. Straight leg raise is negative. Active motion left knee is -10 to 130 degrees of flexion. She has trace effusion. She is tender about the medial joint line. Collaterals are stable, Dean is negative, Amanda's is equivocal. She has genu varum alignment. Her distal neurovascular exam appears intact in the left lower extremity. Previous weightbearing notch, lateral Merchant views of the left knee obtained in the office show severe medial compartment osteoarthrosis with [id number] changes and subchondral sclerosis. IMPRESSION: Left knee severe medial compartment osteoarthrosis. RECOMMENDATIONS: I talked to the patient at length regarding her condition and treatment options. At this point, she remains quite symptomatic and limited because of pain related to her osteoarthrosis despite previous conservative measures. After thorough discussion, she opts to proceed with surgery. We will plan to proceed with left total knee arthroplasty. Risks and benefits were discussed at length in layman's terms. We will institute DVT prophylaxis postoperatively. MMODL / IJN: [id number] /
[~2020-08-17 08:18] MED LIST changes: +ACETAMINOPHEN TAB 500 MG TAB PO PRN; +HYDROmorphone 0.5 MG/0.5 ML SYRINGE IVP PRN; -LACTATED RINGERS 1,000 ML IV SCH; +LIDOCAINE 1% (10MG/ML) FOR IV START INTRADERMA PRN; +MELOXICAM 7.5 MG TAB PO PRN; +MIDAZOLAM 2 MG/2 ML VIAL IV PRN; +TRANEXAMIC ACID 1,000 MG in SODIUM CHLORIDE 0.9% 100 ML IVPB PRN
[2020-08-17] MEDS: LACTATED RINGERS 1,000 ML IV SCH ×2 (09:08→10:16)
[2020-08-17] MEDS: DEXAMETHASONE SOD PHOSPHATE 4 MG/ML 1 ML VIAL IV ONE ×2 (09:27→16:13)
[2020-08-17] MEDS: ONDANSETRON 4 MG/2 ML VIAL IVP ONE ×2 (09:27→16:13)
[2020-08-17] MEDS ORDERED: fentaNYL (PF) 50 MCG/ML 2 ML AMP IVP ONE (09:43)
[2020-08-17] MEDS ORDERED: ROPIVACAINE 5 MG/ML 30 ML VIAL ONE (10:13)
[2020-08-17] MEDS ORDERED: PROPOFOL 10 MG/ML 20 ML VIAL IV ONE (10:13)
[2020-08-17] MEDS ORDERED: MIDAZOLAM 2 MG/2 ML VIAL ONE (10:13)
[2020-08-17] MEDS ORDERED: TRANEXAMIC ACID 1,000 MG/10 ML VIAL ONE (10:13)
[2020-08-17] MEDS ORDERED: SODIUM CHLORIDE 0.9% 100 ML BAG ONE (10:13)
[2020-08-17] MEDS ORDERED: ePHEDrine SULFATE/0.9% NACL/PF 50 MG/5 ML SYRINGE IV ONE (10:13)
[2020-08-17] MEDS ORDERED: fentaNYL (PF) 50 MCG/ML 2 ML AMP ONE (10:13)
[2020-08-17] MEDS ORDERED: MAGNESIUM HYDROXIDE 2,400 MG/10 ML CUP PO PRN (12:02)
[2020-08-17] MEDS ORDERED: ACETAMINOPHEN TAB 325 MG TAB PO PRN (12:02)
[2020-08-17] MEDS ORDERED: HYDROcodone/APAP 5-325MG 1 EACH TAB PO PRN (12:02)
[2020-08-17] MEDS ORDERED: HYDROmorphone 0.5 MG/0.5 ML SYRINGE IVP PRN (12:02)
[2020-08-17] MEDS ORDERED: NALOXONE 0.4 MG/ML 1 ML VIAL IV PRN (12:02)
--- NOTE | 2020-08-17 12:24 | P.OP ---
Date of Procedure: 08/17/20 Preoperative Diagnosis: Left knee severe tricompartmental osteoarthrosis Postoperative Diagnosis: Same Procedure(s) Performed: Left total knee arthroplastycementedposterior stabilized Implants: Depuy Attune size 4 cemented femoral component, size 3 cemented tibial component, 10 mm articular surface, 32 mm cemented patellar component. This is a posterior stabilized implant. Anesthesia: regional, spinal Surgeon: Paolo Varma Industrial Locomotive Operator #1: Jose Newell Estimated Blood Loss (ml): 50 Pathology: other (Bone fragments) Condition: stable Disposition: PACU Indications for Procedure: The patient is a 74-year-old female who presents with progressive left knee pain secondary to osteoarthrosis despite extensive conservative measures. A discussion of the risks and benefits of operative intervention versus continued conservative measures was made with patient. She opted to proceed with surgery. Operative risks to include infection, neurovascular injury, development of blood clots, possible component loosening, possible component failure need for subsequent procedures was discussed. Informed consent was obtained. Operative Findings: As below Description of Procedure: The patient was brought to the operating room, and after induction of spinal anesthesia the left lower extremity was prepped and draped in a normal fashion. The tourniquet was inflated to 270 mm marker. A longitudinal incision extending 3 finger breaths above the superior pole of patella extending to the medial aspect the tibial tubercle was then made. The skin and subcutaneous tissues were divided sharply. Electrocautery was used for hemostasis. A medial parapatellar arthrotomy was performed. The medial soft tissues to include the superficial and deep portions of the medial collateral ligament were elevated subperiosteally. The patella was everted. A portion of the retropatellar fat pad was excised sharply. The anterior cruciate ligament was sacrificed. Blunt retractors were placed. A starting hole was made in the distal femur 1 cm anterior to the posterior cruciate ligament origin. An intramedullary femoral guide was then inserted planning on 5 valgus distal cut with 9 mm distal resection. The cutting block was pinned in place. The distal cut was then made. The posterior referencing sizing guide was utilized. I felt size 4 was most appropriate. 3 of external rotation was built into the system and verified off the trans-epicondylar axis and the posterior condyles. The cutting block was pinned in place. The anterior, posterior, and chamfer cuts then made. Bone fragments were removed. The intercondylar guide was placed and the notch cut was made with a sagittal saw. The bone block was removed in one fragment. The trial component was then placed. There is good anterior to posterior and medial to lateral fit. The distal peg holes were drilled. The trial component was removed. Attention was then paid towards preparing the proximal femur. An extra medullary guide was utilized in line with the tibial shaft and second metatarsal distally. I planned on 2 mm resection from the medial compartment. The cutting block was pinned in place. The proximal tibial cut was then made. The bone was removed in one fragment. The remnants of the medial and lateral menisci were excised at the capsular junction with electrocautery. The tibia sized most appropriately at size 3. The trial femoral and tibial components were placed along with a 10 mm articular surface. I was able to obtain full flexion and extension with internal and external rotation. After several flexion and extension cycles, the tibial rotation was marked with electrocautery line with the medial one third of the tibial tubercle. Attention was then paid towards preparing the patella. A patella reamer was utilized taking stem to 14 mm of bone stock. A good flush cut was made. The patella sized most appropriately 32 mm. The peg holes were drilled. The trial components placed. I had good patellofemoral tracking with no hands technique. The trial components were then removed. The tibia was prepared in the appropriate rotation with appropriate drill and keel punch. The posterior osteophytes were removed with a curved osteotome. The flexion and extension gaps were checked and felt to be symmetric at 10 mm. A trial components were then removed. The bony surfaces were prepared with pulsatile lavage and dried. The tibial component was then cemented place was fully seated. Excess cement was removed. The femoral component cemented place and was fully seated. Excess cement was removed. The trial 10 mm articular surface was placed and the knee was put in full extension. The patella component was cemented place. After the cement had sufficiently hardened, the knee was again taken through a range of motion. Again I was able to obtain full flexion and extension with varus and valgus stress. The trial 10 mm articular surface was removed and the final one inserted. This was fully seated. Care was taken to avoid any soft tissue interposition. Pulsatile lavage was again utilized. The medial parapatellar arthrotomy was closed with #2 Ethibond suture. The tourniquet was deflated with approximately 60 minutes total tourniquet time. Final hemostasis was obtained with the cautery. There was minimal bleeding therefore a deep drain was not placed. The subcutaneous tissues were reapproximated with interrupted 2-0 Vicryl sutures. The skin was reapproximated with 3-0 subcuticular strata fix suture. Skin tape and adhesive was applied. A sterile dressing was applied. The patient was awoken from sedation and transferred to recovery room in good condition. Blood loss was estimated at 50 mL. No complications were incurred. Sponge and needle counts were correct at the end of the case. Cameron WRIGHT assisted during the major components of this case to include exposure, bone resection, implantation, and closure.
[2020-08-17] MEDS ORDERED: ROPIVACAINE 0.2%-NS ON-Q PUMP 1,090 MG, EMPTY PAIN BALL 1 EACH MISCELLANE PRN ×2 (12:36→13:06)
--- NOTE | 2020-08-17 13:07 | P.ANPRN ---
Procedure Note - Anesthesia - Nerve Block Performed Left Adductor Canal Time Out Performed: Yes (:32) Date of Procedure: 08/17/20 Procedure Start Time: Procedure Stop Time: :46 Location of Patient: PreOp Indication: Acute Post-Operative Pain, Requested by Surgeon (Dr Varma) Sedation Type: Sedate with meaningful contact maintained Preparation: Sterile Prep, Sterile Dressing Position: Supine Catheter: Indwelling Needle Types: Pajunk Needle Gauge: 21 Ultrasound used to visualize needle placement: Yes Ultrasound used to observe medication spread: Yes Injectate: 0.5% Ropivacaine (see comment for volume) (20cc) Blood Aspirated: No Pain Paresthesia on Injection Noted: No Resistance on Injection: Normal Image Stored and Saved: Yes Events: Uneventful and Well Tolerated
--- NOTE | 2020-08-17 13:08 | XR ---
EXAMINATION TYPE: XR knee limited LT DATE OF EXAM: 08/17/2020 COMPARISON: NONE TECHNIQUE: Two views submitted HISTORY: Post op FINDINGS: There is a prosthetic knee in near anatomic alignment. There is soft tissue edema and emphysema. IMPRESSION: 1. Postoperative change. Appears in near-anatomic alignment
--- NOTE | 2020-08-17 13:09 | P.ANPRN ---
Procedure Note - Anesthesia - Nerve Block Performed Left iPack Time Out Performed: Yes (09:48) Date of Procedure: 08/17/20 Procedure Start Time: 48 Procedure Stop Time: 10:02 Location of Patient: PreOp Indication: Acute Post-Operative Pain, Requested by Surgeon (Dr Varma) Sedation Type: Sedate with meaningful contact maintained Preparation: Sterile Prep Position: Supine Catheter: None Needle Types: Pajunk Needle Gauge: 21 Ultrasound used to visualize needle placement: Yes Ultrasound used to observe medication spread: Yes Injectate: 0.5% Ropivacaine (see comment for volume) (15cc) Blood Aspirated: No Pain Paresthesia on Injection Noted: No Resistance on Injection: Normal Image Stored and Saved: Yes Events: Uneventful and Well Tolerated
[2020-08-17] MEDS ORDERED: LACTATED RINGERS 1,000 ML IV ONE ×2 (14:30)
[2020-08-17] MEDS ORDERED: ASPIRIN 81 MG PO PRN (17:01)
[2020-08-17] MEDS ORDERED: guaiFENesin 600 MG TABLET.ER PO PRN (17:01)
[2020-08-17] MEDS ORDERED: SYMBICORT 80-4.5 MCG INHALER INHALATION PRN (20:00)
[2020-08-17] MEDS: ONDANSETRON 4 MG/2 ML VIAL IVP PRN (20:28)
[2020-08-17] MEDS ORDERED: MELATONIN 5 MG TABLET PO SCH (21:00)
[2020-08-17] MEDS ORDERED: SENNOSIDES-DOCUSATE SODIUM 1 EACH TAB PO SCH (21:00)
--- NOTE | 2020-08-17 23:15 | CONS ---
CONSULTATION I am covering for Dr. Thayer. DATE OF SERVICE: 08/17/2020 REASON FOR CONSULTATION: Advice regarding COPD and GERD and other medical issues, requested by Dr. Varma. HISTORY OF PRESENT ILLNESS: This 74-year-old woman with a past medical history of COPD, GERD, hypertension, liver disease, being followed by Dr. Powers in the outpatient setting, underwent left total knee joint arthroplasty for severe DJD by Dr. Varma. The patient tolerated the procedure well. There is no history of chest pain, palpitation, headache, loss of consciousness, nausea, vomiting, diarrhea at this time. PAST MEDICAL HISTORY: COPD, GERD, hypertension, hyperlipidemia, liver disease. HOME MEDICATIONS: Vitamin D3, aspirin, diphenhydramine, fluticasone, Luz-D, Mucinex, melatonin. ALLERGIES: PENICILLIN, SULFA, ZITHROMAX, IBUPROFEN. FAMILY HISTORY: No history of disease or strokes in the family. SOCIAL HISTORY: Previous history of smoking. REVIEW OF SYSTEMS: ENT: Diminished hearing. Diminished vision. CARDIOVASCULAR SYSTEM: No angina, palpitations. RESPIRATORY SYSTEM: No cough, hemoptysis. GI: As mentioned earlier. : No dysuria or retention. NERVOUS SYSTEM: No numbness, weakness. ALLERGY/IMMUNOLOGY: No asthma, hayfever. MUSCULOSKELETAL: As mentioned earlier. HEMATOLOGY/ONCOLOGY: No history of anemia. ENDOCRINE: No history of diabetes, hypothyroidism. CONSTITUTIONAL: As mentioned earlier. DERMATOLOGY: Negative. RHEUMATOLOGY: Negative. PSYCHIATRY: As mentioned earlier. PHYSICAL EXAMINATION: Patient alert and oriented x3. Pulse 65, blood pressure 120/66, respiration 18, temperature 98.9, pulse ox 96% on room air. HEENT: Conjunctivae normal. NECK: No jugular venous distention. CARDIOVASCULAR SYSTEM: S1, S2 muffled. RESPIRATORY SYSTEM: Breath sounds diminished at the bases. No rhonchi. No crackles. ABDOMEN: Soft, non-tender. LEGS: Status post left total knee arthroplasty. NERVOUS SYSTEM: Higher functions as mentioned earlier. Moves all 4 limbs. No focal motor or sensory deficit. LYMPHATICS: No lymph node palpable in neck, axillae or groin. SKIN: No ulcer, rash, bleeding. JOINTS: No active deforming arthropathy. LABS: Potassium 4.6. Otherwise, other preoperative labs show hematology normal and chemistry was also recently normal. ASSESSMENT: 1. Status post left total knee arthroplasty. 2. History of chronic obstructive pulmonary disease. 3. History of gastroesophageal reflux disease. 4. Hyperlipidemia. 5. History of liver disease. 6. Degenerative joint disease. 7. History of pneumonia. 8. History of tinnitus. 9. History of cholecystectomy. 10.History of degenerative joint disease. 11.Remote history of nicotine dependence. 12.FULL CODE. RECOMMENDATIONS AND DISCUSSION: In this 74-year-old woman who presented after surgery, at this time I recommend to continue current medications, continue with the monitoring, symptomatic treatment. Resume the home medications. Incentive spirometry. DVT prophylaxis. Patient may be asked to follow up with Dr. Powers closely after discharge. Thank you, Dr. Varma, for letting us participate in the care of this patient. MMERICKAL / MINN: [id number] /
[2020-08-18] MEDS: LACTATED RINGERS 1,000 ML IV SCH (06:50)
--- NOTE | 2020-08-18 07:11 | P.PN ---
Progress Note - Text Progress Note Date: 08/18/20 Patient was seen at bedside at 630 AM. Patient is postop day 1 from left total knee replacement with adductor canal catheter placed for pain . Ropivacaine 0.2% infusion running at 8 ml per hour. VAS score is 6. Patient denies side effects. Lower extremity sensation and motor function is intact. Patient has ambulated. Dressing clean dry and intact over catheter site
[2020-08-18] MEDS: HYDROcodone/APAP 5-325MG 1 EACH TAB PO PRN ×2 (07:45→13:11)
[2020-08-18 08:26] VITALS: RESP 17
[2020-08-18] MEDS ORDERED: CHOLECALCIFEROL 25 MCG (1000 IU) TABLET PO SCH (09:00)
[2020-08-18] MEDS ORDERED: ENOXAPARIN 40 MG/0.4 ML SYRINGE SQ SCH (09:00)
[2020-08-18] MEDS ORDERED: LORATADINE-PSEUDOEPH 5-120 MG 1 EACH TAB.ER.12H PO SCH (09:00)
--- NOTE | 2020-08-18 10:05 | P.PN ---
Subjective Progress Note Date: 08/18/20 Principal diagnosis: Status post left total knee arthroplasty Patient was examined today at bedside, she is resting in her hospital bed. She is ambulating with physical therapy today. She states that the knee is slightly more painful today. She denies any headaches, lightheadedness, chest pain, shortness of breath, nausea vomiting, fever or chills. Objective - Vital Signs Vital signs: Vital Signs Temp 98.1 F 08/18/20 08:00 Pulse 64 08/18/20 08:00 Resp 17 08/18/20 08:00 BP 112/71 08/18/20 08:00 Pulse Ox 97 08/18/20 08:00 Intake & Output 08/17/20 08/18/20 08/18/20 18:59 06:59 18:59 Intake Total 1640 Output Total 300 Balance 1340 Weight 61.9 kg Intake: IV 1100 Oral 540 Output: Urine 250 Estimated Blood Loss 50 Other: Voiding Method Toilet # Voids 1 1 - Exam Left lower extremity: Incision is clean, dry, and intact. The exofin fusion tape is in good condition. There is minimal soft tissue swelling and ecchymosis surrounding the medial and lateral aspects of the incision. Calf is soft, no tenderness with palpation. Plantar flexion, dorsiflexion, EHL, FHL are intact. Sensory exam to light touch throughout the extremity is intact, dorsal pedis pulses 2+. - Labs CBC & Chem 7: 08/17/20 09:09 Assessment and Plan Assessment: Postoperative day 1 status post left total knee arthroplasty Plan: Pain control, plan for discharge home on [place] 5 mg/325 mg DVT prophylaxis, aspirin 81 mg twice a day for 1 month Wound care instructions were discussed Icing and elevating techniques discussed Home physical therapy and nursing after discharge Medical recommendations Discharge planning: Plan for discharge home today Time with Patient: Less than 30
--- NOTE | 2020-08-18 10:07 | P.DS ---
Providers Date of admission: 08/17/2020 Expected date of discharge: 08/18/20 Attending physician: Paolo Varma Consults: 08/17/20 12:05 Consult Physician Routine Consulting Provider: Lindsey Powers Reason/Comments: Medical Management Do you want consulting provider notified?: Yes Primary care physician: Lindsey Powers Hospital Course: Date of admission: 08/17/2020 Date of discharge: 08/18/2020 Admission diagnosis: Status post left total knee arthroplasty Discharge diagnosis: Same Attending physician: Dr. Varma Surgical procedures: Left total knee arthroplasty Brief history: Patient is a 74-year-old female with a history of progressive primary left knee osteoarthritis. At this point patient has failed conservative treatment measures and has opted to proceed with a elective left total knee arthroplasty. Hospital course: Details of patient's surgery can be found in operative report. Patient tolerated the procedure well and was subsequently transported to orthopedic floor. Patient's orthopeidc and medical care was provided daily. Patient had daily laboratory tests performed for evaluation of overall blood counts. Patient had daily physical therapy to include strengthening range of motion as well as education with walker ambulation. Patient was treated with Lovenox for their postoperative DVT prophylaxis during their inpatient stay. Patient was noted to have a relatively uneventful postoperative course. Patient reported satisfactory pain control with oral pain medications by postoperative day 0. Patient showed satisfactory progress with physical therapy. Patient moved steadily through the program and had no difficulty meeting the goals by postoperative day 1. Given patient's otherwise satisfactory course and having met physical therapy goals, plan is to discharge patient home on postoperative day 1. Discharge condition/disposition: Patient will be discharged home in stable condition. Discharge medications: Instructions are given on resumption of patient's normal daily medications per primary care recommendation, in addition patient will be prescribed Seanor 5 mg/325 mg, Senokot-S, aspirin 81 mg. Discharge instructions: 1. Wound care and infection precautions, keep incision dry and covered while showering, no lotions, creams, moisturizers. No soaking, tubs, pools, hottubs. Do not scrub over the incision. 2. Weight-bear as tolerated with walker / cane until follow-up. 3. Ice and elevate when necessary. Do not exceed 20 minutes per hour with ice pack. 4. Utilize compression sleeve until seen at first follow up appointment. 5. Visiting nursing care. 6. Home physical therapy including home CPM. 7. Pain meds and anticoagulants per prescription. 8. Pain medication has potential to cause constipation. Increase oral fluid and fiber intake. Contact primary care provider if you have not had a bowel movement within 48 hours after discharge 9. No anti-inflammatory medication until discussed at first post operative visit, this including Motrin, Aleve, Mobic, Diclofenac. 10. Follow up in office at 2 weeks postop with Cameron Newell PA-C/Haroon Kapadia 11. Follow up with your primary care doctor 7-10 days after discharge. 12. Contact [facility] with any questions, . Procedures: Left total knee arthroplasty Patient Condition at Discharge: Good Plan - Discharge Summary Discharge Rx Participant: Yes New Discharge Prescriptions: New Aspirin [Adult Low Dose Aspirin EC] 81 mg PO BID #60 tablet.dr Portillo/Docusate Sodium [Senna-S 8.6-50 mg Tablet] 1 each PO DAILY PRN #20 tablet PRN Reason: Constipation HYDROcodone/APAP 5-325MG [Seanor 5-325] 1 - 2 tab PO Q6HR PRN #42 tab PRN Reason: Pain Discontinued Aspirin [Adult Low Dose Aspirin EC] 40.5 mg PO DAILY PRN PRN Reason: Pain No Action diphenhydrAMINE HCL [Benadryl] 12.5 mg PO HS PRN PRN Reason: Insomnia Cholecalciferol (Vitamin D3) [Vitamin D3 (4,000 Iu)] 4,000 unit PO DAILY Fluticasone/Vilanterol [Breo Ellipta 100-25 Mcg Inhaler] 1 inhalation PO Q24HR PRN PRN Reason: soib guaiFENesin [Mucinex] 1,200 mg PO DAILY PRN PRN Reason: Cough Fexofenadine/Pseudoephedrine [Luz-D 24 Hour Tablet] 1 each PO DAILY Melatonin 5 mg PO HS Discharge Medication List diphenhydrAMINE HCL [Benadryl] 12.5 mg PO HS PRN 03/04/15 [History] Cholecalciferol (Vitamin D3) [Vitamin D3 (4,000 Iu)] 4,000 unit PO DAILY 08/13/20 [History] Fexofenadine/Pseudoephedrine [Luz-D 24 Hour Tablet] 1 each PO DAILY 08/13/20 [History] Fluticasone/Vilanterol [Breo Ellipta 100-25 Mcg Inhaler] 1 inhalation PO Q24HR PRN 08/13/20 [History] Melatonin 5 mg PO HS 08/13/20 [History] guaiFENesin [Mucinex] 1,200 mg PO DAILY PRN 08/13/20 [History] Aspirin [Adult Low Dose Aspirin EC] 81 mg PO BID #60 tablet. 08/18/20 [Rx] HYDROcodone/APAP 5-325MG [Seanor 5-325] 1 - 2 tab PO Q6HR PRN #42 tab 08/18/20 [Rx] Sennosides/Docusate Sodium [Senna-S 8.6-50 mg Tablet] 1 each PO DAILY PRN #20 tablet 08/18/20 [Rx] Follow up Appointment(s)/Referral(s): [facility],Equipment [NON-STAFF] - (*Please call [facility] once home to arrange delivery of Continous Passive Motion (CPM) machine*) [facility], [NON-STAFF] - Jose Newell PAC [PHYSICIAN FLOOR SWEEPER] - 2 Weeks Activity/Diet/Wound Care/Special Instructions: Orthopedic Discharge Instructions: 1. Wound care and infection precautions, keep incision dry and covered while showering, no lotions, creams, moisturizers. No soaking, pools, hot tubs. Do not scrub over incision. 2. Weight-bear as tolerated with walker / cane until follow-up. 3. Ice and elevate when necessary. Do not exceed 20 minutes per hour with ice pack. 4. Utilize compression sleeve until seen at first follow up appointment. 5. Pain meds and anticoagulants per prescription. 6. Pain medication has potential to cause constipation. Increase oral fluid and fiber intake. Contact primary care provider if you have not had a bowel movement within 48 hours after discharge. 7. No anti-inflammatory medication until discussed at first post operative visit, this including Motrin, Aleve, Mobic, Diclofenac. 8. Follow up in office at 2 weeks postop with Cameron Newell PA-C/Haroon Catalan PA-C 9. Follow up with your primary care doctor 7-10 days after discharge. 10. Contact [facility] with any questions, . Discharge Disposition: HOME WITH HOME HEALTH SERVICES
[2020-08-18 12:48] LABS: Basophils # (A) 0.03 X 10*3/uL (0.00-0.10); Basophils % (A) 0.3 %; Eosinophils # (A) 0.05 X 10*3/uL (0.04-0.35); Eosinophils % (A) 0.6 %; HCT 35.3 % (37.2-46.3); HGB 11.7 g/dL (12.0-15.0); Lymphocytes # (A) 1.78 X 10*3/uL (0.90-5.00); Lymphocytes % (A) 20.1 %; MCH 31.1 pg (27.0-32.0); MCHC 33.1 g/dL (32.0-37.0); MCV 93.9 fL (80.0-97.0); Mean Platelet Volume 12.1 fL (9.5-12.2); Monocytes # (A) 0.96 X 10*3/uL (0.20-1.00); Monocytes % (A) 10.8 %; Neutrophils % (A) 67.7 %; RBC 3.76 X 10*6/uL (4.10-5.20); RDW 13.1 % (11.5-14.5); WBC 8.86 X 10*3/uL (4.50-10.00)
[2020-08-18 13:28] VITALS: BP 97/64; PULSE 65; TEMP 98.8
[2020-08-18] MEDS: ONDANSETRON 4 MG/2 ML VIAL IVP PRN (13:58)
--- NOTE | 2020-08-18 19:12 | PN ---
PROGRESS NOTE DATE OF SERVICE: 08/18/2020 I am covering for Dr. Thayer. HISTORY OF PRESENT ILLNESS: This 74-year-old woman who was admitted with left total knee arthroplasty improving significantly. No chest pain. No palpitations. No fever. PHYSICAL EXAMINATION: On exam, alert and oriented x3. Pulse 64, blood pressure 112/71, respiration 17, temperature 98.1, pulse ox 97% on room air. HEENT: Conjunctivae normal. NECK: No jugular venous distention. CARDIOVASCULAR: S1, S2 muffled. RESPIRATORY: Breath sounds diminished at the bases. No rhonchi. No crackles. ABDOMEN: Soft. LEGS: Status post left knee arthroplasty . NERVOUS SYSTEM: No focal deficits. LABS: Hemoglobin 11.7. ASSESSMENT: 1. Status post left total knee joint arthroplasty. 2. History of chronic obstructive pulmonary disease. 3. History of gastroesophageal reflux disease. 4. Hyperlipidemia. 5. History of liver disease. 6. Degenerative joint disease. 7. History of pneumonia. 8. History of tinnitus. 9. History of cholecystectomy. 10.History of degenerative joint disease. 11.Remote history of nicotine dependence. 12.FULL CODE. RECOMMENDATIONS AND DISCUSSION: I recommend to continue current medications, continue symptomatic treatment. Otherwise, at this time continue the home medications. DVT prophylaxis. Incentive spirometry. Closely follow with Dr. Powers. The rest of the recommendations per Orthopedic Surgery. Further recommendations to follow. MMODL / IJN: [id number] /
== END 2020-08-18 14:12 | disposition home health service (06) ==
LOC: OR 08:18 → 4SSUR 11:54 → OR 08-18 14:12
PROVIDERS: ATTEND Orthopaedic Surgery
DX: M17.12 Unilateral primary osteoarthritis, left knee (principal); M25.762 Osteophyte, left knee; J44.9 Chronic obstructive pulmonary disease, unspecified; K21.9 Gastro-esophageal reflux disease without esophagitis; E78.5 Hyperlipidemia, unspecified; K76.9 Liver disease, unspecified; I10 Essential (primary) hypertension; K76.0 Fatty (change of) liver, not elsewhere classified; K74.60 Unspecified cirrhosis of liver; K75.9 Inflammatory liver disease, unspecified; Z88.1 Allergy status to other antibiotic agents; Z88.0 Allergy status to penicillin; Z88.2 Allergy status to sulfonamides; Z79.82 Long term (current) use of aspirin; Z98.890 Other specified postprocedural states; Z90.49 Acquired absence of other specified parts of digestive tract; Z96.651 Presence of right artificial knee joint; Z91.048 Other nonmedicinal substance allergy status; Z86.2 Personal history of diseases of the blood and blood-forming organs and certain disorders involving the immune mechanism; Z79.51 Long term (current) use of inhaled steroids; Z79.899 Other long term (current) drug therapy; Z87.891 Personal history of nicotine dependence; Z88.6 Allergy status to analgesic agent; Z87.01 Personal history of pneumonia (recurrent); Z86.69 Personal history of other diseases of the nervous system and sense organs; Z91.89 Other specified personal risk factors, not elsewhere classified; Z82.49 Family history of ischemic heart disease and other diseases of the circulatory system
CPT/HCPCS: 27447; 97110; 64999; 64448; 76942; 84132; 85025; 88300; 73560; C1713; C1776; J2250; J1100; J0690 ×2; J2405 ×2; J1650; J3010; J2795 ×2; J2704; J1170

== ENCOUNTER → 2020-09-21 | Outpatient (CLI) | payer MEDICARE, OTHER ==
--- NOTE | 2020-09-21 08:06 | US ---
EXAMINATION TYPE: US liver DATE OF EXAM: 09/21/2020 COMPARISON: 04/30/2020 CLINICAL HISTORY: K74.60 Unspec cirrhosis of the liver. Cirrhosis EXAM MEASUREMENTS: Liver Length: 14.3 cm CBD: 0.5 cm Right Kidney: 10.3 x 3.7 x 5.1 cm Pancreas: wnl Liver: Slight coarse echotexture as visualized on prior, otherwise appeared wnl Gallbladder: Surgically absent Evidence for sonographic Heath's sign: No CBD: wnl Right Kidney: wnl IMPRESSION: 1. Coarse echo pattern of liver suggestive of hepatic steatosis, hepatitis or diffuse hepatocellular disease. 2. Post cholecystectomy
== END | disposition home or self-care (01) ==
LOC: RADUSWWP 07:35
PROVIDERS: ATTEND Internal Medicine Gastroenterology
DX: K74.60 Unspecified cirrhosis of liver (principal); Z90.49 Acquired absence of other specified parts of digestive tract
CPT/HCPCS: 76705

== ENCOUNTER → 2020-09-28 | Outpatient (CLI) | payer MEDICARE, OTHER ==
[2020-09-28 19:16] LABS: INR 0.92 (0.90-1.11); Prothrombin Time 10.1 sec (9.9-11.9)
[2020-09-28 19:42] LABS: HCT 41.7 % (37.2-46.3); MCH 31.7 pg (27.0-32.0); MCHC 33.6 g/dL (32.0-37.0); MCV 94.3 fL (80.0-97.0); Mean Platelet Volume 11.5 fL (9.5-12.2); Platelet Count 72 X 10*3/uL (140-440); RBC 4.42 X 10*6/uL (4.10-5.20); RDW 12.4 % (11.5-14.5); WBC 5.51 X 10*3/uL (4.50-10.00)
[2020-09-29 00:44] LABS: Albumin 4.6 g/dL (3.80-4.90); Albumin/Globulin Ratio 2.09 (1.60-3.17); Anion Gap 7.4 mmol/L (4.00-12.00); BUN/Creat Ratio 13.33 Ratio (12.00-20.00); Calcium 9.9 mg/dL (8.7-10.3); Carbon Dioxide 29.6 mmol/L (21.6-31.8); Globulin 2.2 g/dL (1.6-3.3); Potassium 4.6 mmol/L (3.5-5.5); Total Protein 6.8 g/dL (6.2-8.2)
== END | disposition home or self-care (01) ==
LOC: LABWHC1 11:37
PROVIDERS: ATTEND Internal Medicine Gastroenterology
DX: K74.60 Unspecified cirrhosis of liver (principal)
CPT/HCPCS: 36415; 80053; 82105; 85027; 85610

== ENCOUNTER → 2021-01-24 | Outpatient (CLI) | payer MEDICARE, OTHER ==
[2021-01-24 13:03] LABS: HCT 44.5 % (34.0-46.0); HGB 14.8 gm/dL (11.4-16.0); MCH 30.9 pg (25.0-35.0); MCHC 33.4 g/dL (31.0-37.0); MCV 92.5 fL (80.0-100.0); Mean Platelet Volume 9.5; RBC 4.81 m/uL (3.80-5.40); RDW 13.7 % (11.5-15.5); WBC 4.6 k/uL (3.8-10.6)
[2021-01-24 13:51] LABS: Platelet Count 174 k/uL (150-450)
[2021-01-24 19:36] LABS: INR 0.91 (0.90-1.11)
[2021-01-25 02:00] LABS: African American GFR (CKD) 84.2 (60.0-200.0); Albumin 4.6 g/dL (3.80-4.90); Albumin/Globulin Ratio 2.3 (1.60-3.17); Anion Gap 9.9 mmol/L (4.00-12.00); BUN/Creat Ratio 16.25 Ratio (12.00-20.00); Calcium 9.2 mg/dL (8.7-10.3); Carbon Dioxide 24.1 mmol/L (21.6-31.8); Non-African American GFR(CKD) 72.6 (60.0-200.0); Potassium 4.4 mmol/L (3.5-5.5); Total Protein 6.6 g/dL (6.2-8.2)
== END | disposition home or self-care (01) ==
LOC: LABWHC1 11:26
PROVIDERS: ATTEND Internal Medicine Gastroenterology
DX: K74.60 Unspecified cirrhosis of liver (principal)
CPT/HCPCS: 36415; 80053; 82105; 85027; 85610

== ENCOUNTER → 2021-04-19 | Outpatient (CLI) | payer MEDICARE, OTHER ==
--- NOTE | 2021-04-21 12:06 | MM ---
Reason for exam: screening (asymptomatic). Last mammogram was performed 1 year and 1 month ago. History: Patient is postmenopausal. Benign excisional biopsy of the left breast, July 2010. Took estrogen for 3 years. Took progesterone for 3 years. Physical Findings: A clinical breast exam by your physician is recommended on an annual basis and results should be correlated with mammographic findings. MG 3D Screening Mammo W/Cad Bilateral CC and MLO view(s) were taken. Prior study comparison: March 09, 2020, bilateral MG 3d screening mammo w/cad. October 25, 2018, bilateral MG 3d screening mammo w/cad. There are scattered fibroglandular densities. No significant changes when compared with prior studies. ASSESSMENT: Benign, BI-RAD 2 RECOMMENDATION: Routine screening mammogram of both breasts in 1 year.
== END | disposition home or self-care (01) ==
LOC: RADMAMWWP 14:19
PROVIDERS: ATTEND Family Medicine
DX: Z12.31 Encounter for screening mammogram for malignant neoplasm of breast (principal)
CPT/HCPCS: 77063; 77067

== ENCOUNTER → 2021-04-22 | Outpatient (CLI) | payer MEDICARE, OTHER ==
--- NOTE | 2021-04-22 09:58 | US ---
EXAMINATION TYPE: US liver DATE OF EXAM: 04/22/2021 COMPARISON: US dated 04/30/2020 CLINICAL HISTORY: K74.60 Unspecified cirrhosis of liver. EXAM MEASUREMENTS: Liver Length: 9.5 cm Gallbladder Wall: Surgically absent CBD: 0.5 cm Right Kidney: 8.9 x 3.7 x 5.2 cm Pancreas: wnl Liver: wnl Gallbladder: Surgically absent CBD: wnl Right Kidney: No hydronephrosis or masses seen IMPRESSION: 1. Normal post cholecystectomy right upper quadrant ultrasound
== END | disposition home or self-care (01) ==
LOC: RADUSWWP 09:37
PROVIDERS: ATTEND Internal Medicine Gastroenterology
DX: K74.60 Unspecified cirrhosis of liver (principal)
CPT/HCPCS: 76705

== ENCOUNTER → 2021-12-29 | Outpatient (CLI) | payer MEDICARE, OTHER ==
--- NOTE | 2021-12-29 08:31 | US ---
EXAMINATION TYPE: US liver DATE OF EXAM: 12/29/2021 COMPARISON: US CLINICAL HISTORY: K76.0 Fatty liver. Non-alcoholic fatty liver. Cholecystectomy 1994. TECHNIQUE: Multiple sonographic images of the right upper quadrant are obtained. FINDINGS: EXAM MEASUREMENTS: Liver Length: 14.7 cm CBD: 0.58 cm Right Kidney: 9.9 x 4.8 x 3.8 cm PROTOTYPE ENGINEER NOTES: Limited due to overlying bowel gas. Pancreas: Appears wnl Liver: Appears slightly coarse. Gallbladder: Surgically absent. Evidence for sonographic Heath's sign: No CBD: Appears wnl Right Kidney: No hydronephrosis or masses seen IMPRESSION: Fatty liver
[2021-12-29 10:50] LABS: African American GFR (CKD) 83.6 (60.0-200.0); Albumin 4.5 g/dL (3.8-4.9); Albumin/Globulin Ratio 2.37 (1.60-3.17); Anion Gap 8.2 mmol/L (10.00-18.00); BUN/Creat Ratio 16.25 Ratio (12.00-20.00); Calcium 9.9 mg/dL (8.7-10.3); Carbon Dioxide 28.8 mmol/L (20.0-27.5); Globulin 1.9 g/dL (1.6-3.3); Non-African American GFR(CKD) 72.1 (60.0-200.0); Potassium 4.9 mmol/L (3.5-5.5); Total Bilirubin 0.9 mg/dL (0.30-1.20); Total Protein 6.4 g/dL (6.2-8.2)
[2021-12-29 12:03] LABS: Basophils # (A) 0.04 X 10*3/uL (0.00-0.10); Basophils % (A) 0.9 %; Eosinophils # (A) 0.29 X 10*3/uL (0.04-0.35); Eosinophils % (A) 6.8 %; HCT 42.4 % (37.2-46.3); HGB 14.4 g/dL (12.0-15.0); Immature Grans, Automated 0.7 %; Lymphocytes # (A) 1.31 X 10*3/uL (0.90-5.00); Lymphocytes % (A) 30.6 %; MCH 31.2 pg (27.0-32.0); MCV 91.8 fL (80.0-97.0); Mean Platelet Volume 11.8 fL (9.5-12.2); Monocytes # (A) 0.57 X 10*3/uL (0.20-1.00); Monocytes % (A) 13.3 %; NRBC Per 100 WBC 0 /100 WBCS (0.0-0.0); Neutrophils # (A) 2.04 X 10*3/uL (1.80-7.70); Neutrophils % (A) 47.7 %; Platelet Count 93 X 10*3/uL (140-440); RBC 4.62 X 10*6/uL (4.10-5.20); RDW 12.2 % (11.5-14.5); WBC 4.28 X 10*3/uL (4.50-10.00)
[2021-12-29 12:20] LABS: Immature Platelet Fraction 11.3 % (1.1-6.1)
== END | disposition home or self-care (01) ==
LOC: RADUSWWP 07:32
PROVIDERS: ATTEND Internal Medicine Gastroenterology
DX: K76.0 Fatty (change of) liver, not elsewhere classified (principal)
CPT/HCPCS: 76705; 80053; 85025

== ENCOUNTER → 2022-03-30 | Outpatient (CLI) | payer MEDICARE, OTHER ==
[2022-03-30 15:18] LABS: ALT 23 U/L (8-44); AST 23 U/L (13-35); African American GFR (CKD) 72.5 (60.0-200.0); Albumin 4.6 g/dL (3.8-4.9); Albumin/Globulin Ratio 1.84 (1.60-3.17); Alkaline Phosphatase 84 U/L (41-126); BUN/Creat Ratio 12.78 Ratio (12.00-20.00); Blood Urea Nitrogen 11.5 mg/dL (9.0-27.0); Calcium 9.8 mg/dL (8.7-10.3); Carbon Dioxide 26.8 mmol/L (20.0-27.5); Chloride 101 mmol/L (96-109); Chol/HDL Ratio 3.69 Ratio; Globulin 2.5 g/dL (1.6-3.3); Glucose 106 mg/dL (70-110); LDL Cholesterol,Calculated 131.7 mg/dL (0.0-131.0); Non-African American GFR(CKD) 62.5 (60.0-200.0); Potassium 4.6 mmol/L (3.5-5.5); Sodium 138 mmol/L (135-145); Total Protein 7.1 g/dL (6.2-8.2); VLDL Calculation 17.66 mg/dL (5.00-40.00)
== END | disposition home or self-care (01) ==
LOC: LABWHC1 09:57
PROVIDERS: ATTEND Family Medicine
DX: Z00.00 Encounter for general adult medical examination without abnormal findings (principal); K76.0 Fatty (change of) liver, not elsewhere classified; R60.0 Localized edema; H92.01 Otalgia, right ear; G60.8 Other hereditary and idiopathic neuropathies
CPT/HCPCS: 36415; 80053; 80061; 83036; 84443

== ENCOUNTER → 2022-04-21 | Outpatient (CLI) | payer MEDICARE, OTHER ==
--- NOTE | 2022-04-24 08:14 | MM ---
Reason for Exam: Screening (asymptomatic). Last screening mammogram was performed 12 month(s) ago. Patient History: Menarche at age 16. First Full-Term at age 31. Late child-bearing (after 30). Postmenopausal. Patient used Estrogen for 3 years. Patient used Progesterone for 3 years. 07/2010, Benign Excisional Biopsy on the left side. Risk Values: Sarah 5 year model risk: 2.6%. NCI Lifetime model risk: 5.6%. Prior Study Comparison: 10/25/2018 Bilateral Screening Mammogram, [facility]. 03/09/2020 Bilateral Screening Mammogram, [facility]. 04/19/2021 Bilateral Screening Mammogram, [facility]. Tissue Density: There are scattered fibroglandular densities. Findings: Analyzed By CAD. There is no suspicious group of microcalcifications or new suspicious mass in either breast. Overall Assessment: Benign, BI-RAD 2 Management: Screening Mammogram of both breasts in 1 year. A clinical breast exam by your physician is recommended on an annual basis and results should be correlated with mammographic findings. Electronically signed and approved by: Norman Cornejo M.D. Radiologis
== END | disposition home or self-care (01) ==
LOC: RADMAMWWP 13:20
PROVIDERS: ATTEND Family Medicine
DX: Z12.31 Encounter for screening mammogram for malignant neoplasm of breast (principal); Z78.0 Asymptomatic menopausal state
CPT/HCPCS: 77063; 77067

== ENCOUNTER → 2022-08-22 | Outpatient (CLI) | payer MEDICARE, OTHER ==
[2022-08-22 16:01] LABS: African American GFR (CKD) 83.6 (60.0-200.0); Albumin 4.5 g/dL (3.8-4.9); Albumin/Globulin Ratio 2.14 (1.60-3.17); Anion Gap 9.5 mmol/L (10.00-18.00); BUN/Creat Ratio 22.13 Ratio (12.00-20.00); Blood Urea Nitrogen 17.7 mg/dL (9.0-27.0); Calcium 9.6 mg/dL (8.7-10.3); Carbon Dioxide 25.5 mmol/L (20.0-27.5); Globulin 2.1 g/dL (1.6-3.3); Non-African American GFR(CKD) 72.1 (60.0-200.0); Potassium 4.4 mmol/L (3.5-5.5); Total Bilirubin 0.7 mg/dL (0.30-1.20); Total Protein 6.6 g/dL (6.2-8.2)
[2022-08-22 16:34] LABS: Basophils # (A) 0.06 X 10*3/uL (0.00-0.10); Basophils % (A) 0.8 %; Eosinophils # (A) 0.31 X 10*3/uL (0.04-0.35); Eosinophils % (A) 4.1 %; HCT 42.1 % (37.2-46.3); HGB 14.3 g/dL (12.0-15.0); Immature Grans, Automated 0.7 %; Immature Platelet Fraction 11.8 % (1.1-6.1); Lymphocytes # (A) 3.31 X 10*3/uL (0.90-5.00); Lymphocytes % (A) 43.4 %; MCH 30.3 pg (27.0-32.0); MCV 89.2 fL (80.0-97.0); Mean Platelet Volume 11.7 fL (9.5-12.2); Monocytes # (A) 0.81 X 10*3/uL (0.20-1.00); Monocytes % (A) 10.6 %; NRBC Per 100 WBC 0 /100 WBCS (0.0-0.0); Neutrophils # (A) 3.08 X 10*3/uL (1.80-7.70); Neutrophils % (A) 40.4 %; Platelet Count 130 X 10*3/uL (140-440); RBC 4.72 X 10*6/uL (4.10-5.20); RBC Morphology NORMAL; RDW 12.2 % (11.5-14.5); WBC 7.62 X 10*3/uL (4.50-10.00)
== END | disposition home or self-care (01) ==
LOC: LABWHC1 11:10
PROVIDERS: ATTEND Internal Medicine Gastroenterology
DX: K76.0 Fatty (change of) liver, not elsewhere classified (principal)
CPT/HCPCS: 36415; 80053; 85025

== ENCOUNTER → 2022-09-27 | Outpatient (CLI) | payer MEDICARE, OTHER ==
--- NOTE | 2022-09-27 14:45 | CT ---
EXAMINATION TYPE: CT sinus w con CT DLP: 693.0 mGycm, Automated exposure control for dose reduction was used. DATE OF EXAM: 09/27/2022 2:34 PM COMPARISON: None. CLINICAL INDICATION:Female, 77 years old with history of J32.8 Chronic sinusitis, H69.93 Eustachian t ube; PHH, chronic sinusitis CONTRAST: None. TECHNIQUE: Multiple thin axial images were obtained through the paranasal sinuses after the administr ation of 100 cc of Isovue-300. Additional coronal and sagittal reformatted images were submitted for evaluation. FINDINGS: Frontal sinuses: Normally developed and aerated. Frontal Recess: Clear Maxillary Sinuses: Normally developed. The left maxilla sinus is well aerated. Mild mucosal thickenin g of the right maxillary sinus. Maxillary Infundibula([facility]): Clear, . Ethmoid sinuses: Normally developed and aerated. Ethmoidal notch: Protected and abutting the lateral lamina. Sphenoid sinuses: Normally developed and aerated. There is sellar sphenoid sinus pneumatization witho ut evidence of dehiscence. No dehiscence of carotid canal. No evidence of optic nerve dehiscence wit hin the sphenoid sinus. Sphenoethmoidal recesses: Clear. Nasal septum: Mildly deviated to the right.. Nasal Turbinates: Within normal limits. Mastoid air cells & middle ears: The air cells are clear. The middle ears are grossly unremarkable. Modified Soft tissues & Brain: Partially seen without gross abnormality. Globes are intact. Other: Cribriform plate is symmetric. No evidence of bony dehiscence of skull base. Lamina papyracea is intact without evidence of remote orbital fracture or orbital prolapse into the e thmoid sinus. No abnormal contrast enhancement. Multiple tonsilliths identified. IMPRESSION: 1. Mild right maxillary sinus disease. 2. The ostiomeatal units, frontonasal and sphenoethmoidal recesses are clear. No abnormal contrast en hancement.
== END | disposition home or self-care (01) ==
LOC: RADCTMAIN 13:39
PROVIDERS: ATTEND Family Medicine
DX: J32.8 Other chronic sinusitis (principal); H69.93 Unspecified Eustachian tube disorder, bilateral
CPT/HCPCS: 82565; 84520; 36415; 70487; Q9967

== ENCOUNTER → 2023-04-23 | Outpatient (CLI) | payer MEDICARE, OTHER ==
--- NOTE | 2023-04-24 16:10 | MM ---
Reason for Exam: Screening (asymptomatic). Last screening mammogram was performed 12 month(s) ago. Patient History: Menarche at age 16. First Full-Term at age 31. Late child-bearing (after 30). Postmenopausal. Patient used Estrogen for 3 years. Patient used Progesterone for 3 years. 07/2010, Benign Excisional Biopsy on the left side. Risk Values: Sarah 5 year model risk: 2.6%. NCI Lifetime model risk: 5.3%. Prior Study Comparison: 03/09/2020 Bilateral Screening Mammogram, [facility]. 04/19/2021 Bilateral Screening Mammogram, [facility]. 04/21/2022 Bilateral MG 3D screening mammo w/cad, [facility]. Tissue Density: There are scattered fibroglandular densities. Findings: Analyzed By CAD. Abdomen appears symmetrical and stable. No significant interval change is evident. Scattered benign round calcifications are present bilaterally. No suspicious groups of microcalcifications, spiculated or lobular masses, architectural distortion or other secondary signs of malignancy are mammographically apparent. Overall Assessment: Benign, BI-RAD 2 Management: Screening Mammogram of both breasts in 1 year. A negative mammogram report should not preclude additional follow up of suspicious palpable abnormalities. Patient should continue monthly self breast exam. A clinical breast exam by your physician is recommended on an annual basis and results should be correlated with mammographic findings. Electronically signed and approved by: Teddy Vallecillo D.O. Radiologis
== END | disposition home or self-care (01) ==
LOC: RADMAMWWP 08:14
PROVIDERS: ATTEND Family Medicine
DX: Z12.31 Encounter for screening mammogram for malignant neoplasm of breast (principal); Z78.0 Asymptomatic menopausal state
CPT/HCPCS: 77063; 77067

== ENCOUNTER → 2023-05-28 | Outpatient (CLI) | payer MEDICARE, OTHER ==
--- NOTE | 2023-05-30 21:30 | MR ---
EXAMINATION TYPE: MR iac wo/w con DATE OF EXAM: 05/28/2023 5:22 PM CLINICAL INDICATION:Female, 77 years old with history of H90.A21 SNSRNRL HEAR LOSS, UNI, R EAR; PHH, Hearing loss right side COMPARISON: None TECHNIQUE: Multi planar, multi sequence imaging was performed through the brain. Specialized thin s equences were obtained through the internal auditory canals. Pre-and post gadolinium sequences were obtained. MR contrast: IV Contrast: 6.5 cc Gadavist FINDINGS: The sosa-white junctions, ventricular system, and cisterns appear unremarkable. Scattered foci of h igh T2 signal intensity are seen within the periventricular white matter. Midline structures show no abnormality. Diffusion-weighted imaging shows no evidence of restricted diffusion. The susceptibility weighted images do not reveal any evidence for micro-hemorrhage. The bone marrow signal is within normal limits. Paranasal sinuses and mastoid air cells: Mild scattered paranasal sinus disease. Visualized orbits: Orbital contents are intact. After administration of gadolinium, no abnormal enhancement is seen. The internal auditory canal sequences demonstrate no significant irregularity. The 7th cranial nerve s, 8 cranial nerves, and cerebellar pontine angles appear unremarkable. After the administration dolly olinium, no abnormal enhancement is seen within the internal auditory canals. Vascular loop: None. IMPRESSION: 1. No evidence of intracranial mass nor acute/subacute CVA. 2. No evidence of internal auditory canal abnormality. 3. Nonspecific white matter changes, likely secondary to small vessel ischemic disease. 4. Moderate right maxillary sinus paranasal sinus mucosal thickening
== END | disposition home or self-care (01) ==
LOC: RADMRIMAIN 15:55
PROVIDERS: ATTEND Otolaryngology
DX: H90.A21 Sensorineural hearing loss, unilateral, right ear, with restricted hearing on the contralateral side (principal); J34.89 Other specified disorders of nose and nasal sinuses; R90.82 White matter disease, unspecified
CPT/HCPCS: 70553; A9585

== ENCOUNTER → 2023-07-18 | Outpatient (CLI) | payer MEDICARE, OTHER ==
--- NOTE | 2023-07-18 09:12 | US ---
EXAMINATION TYPE: US liver DATE OF EXAM: 07/18/2023 COMPARISON: 06/20/22 CLINICAL INDICATION: Female, 77 years old with history of K76.0 FATTY (CHANGE OF) LIVER, NOT ELSEWHER E CLASS; liver disease, yearly check up TECHNIQUE: Multiple sonographic images of the right upper quadrant are obtained. FINDINGS: EXAM MEASUREMENTS: Liver Length: 12.2 cm Gallbladder Wall: Surgically absent CBD: 0.4 cm Right Kidney: 9.9x3.4x4.8 cm ASSISTANT PROJECT ENGINEER NOTES: Pancreas: Tail obscured by overlying bowel gas Liver: wnl Gallbladder: Surgically absent Evidence for sonographic Heath's sign: No CBD: wnl Right Kidney: No hydronephrosis or masses seen IMPRESSION: No significant abnormality appreciated.
[2023-07-18 09:33] LABS: Basophils # (A) 0.1 k/uL (0-0.2); Basophils % (A) 1 %; Eosinophils # (A) 0.3 k/uL (0-0.7); Eosinophils % (A) 5 %; HCT 45.7 % (34.0-46.0); HGB 15.1 gm/dL (11.4-16.0); Lymphocytes # (A) 1.4 k/uL (1.0-4.8); Lymphocytes % (A) 29 %; MCH 30.9 pg (25.0-35.0); MCHC 33.1 g/dL (31.0-37.0); MCV 93.4 fL (80.0-100.0); Mean Platelet Volume 9.2; Monocytes # (A) 0.4 k/uL (0-1.0); Monocytes % (A) 8 %; Neutrophils # (A) 2.8 k/uL (1.3-7.7); Neutrophils % (A) 56 %; RDW 13.2 % (11.5-15.5)
[2023-07-18 10:00] LABS: Platelet Count 140 k/uL (150-450)
[2023-07-18 12:09] LABS: ALT 20 U/L (8-44); AST 17 U/L (13-35); Albumin 4.5 g/dL (3.8-4.9); Albumin/Globulin Ratio 2.14 Ratio (1.60-3.17); Alkaline Phosphatase 74 U/L (41-126); BUN/Creat Ratio 14.11 Ratio (12.00-20.00); Blood Urea Nitrogen 12.7 mg/dL (9.0-27.0); Calcium 9.7 mg/dL (8.7-10.3); Carbon Dioxide 28.4 mmol/L (21.6-31.8); Chloride 105 mmol/L (96-109); Globulin 2.1 g/dL (1.6-3.3); Glucose 101 mg/dL (70-110); Potassium 4.3 mmol/L (3.5-5.5); Sodium 142 mmol/L (135-145); Total Bilirubin 0.9 mg/dL (0.3-1.2); Total Protein 6.6 g/dL (6.2-8.2)
== END | disposition home or self-care (01) ==
LOC: RADUSWWP 08:25
PROVIDERS: ATTEND Internal Medicine Gastroenterology
DX: K76.0 Fatty (change of) liver, not elsewhere classified (principal)
CPT/HCPCS: 36415; 76705; 80053; 85025

== ENCOUNTER → 2023-09-03 | Outpatient (CLI) | payer MEDICARE, OTHER ==
--- NOTE | 2023-09-04 08:33 | XR ---
EXAMINATION TYPE: XR lumbosacral spine 5 views DATE OF EXAM: 09/03/2023 Comparison: 07/20/2017 Clinical History: 77-year-old female R20.2 M25.551 M54.50 Findings: Cholecystectomy clips. 5 lumbar type vertebral bodies. No pars interarticularis defect. Hypertrophic facet arthropathy mid to lower lumbar spine with degenerative grade 1 anterolisthesis L4-L5. Mild end plate spondylosis throughout. Vertebral body heights are preserved. Impression: 1. Hypertrophic facet arthropathy mid to lower lumbar spine with degenerative grade 1 anterolisthesis L4-L5. 2. Mild multilevel degenerative disc disease. 3. No vertebral compression collapse.
== END | disposition home or self-care (01) ==
LOC: RADXRMAIN 15:42
PROVIDERS: ATTEND Family Medicine
DX: M47.816 Spondylosis without myelopathy or radiculopathy, lumbar region (principal); M51.36 Other intervertebral disc degeneration, lumbar region; M43.16 Spondylolisthesis, lumbar region; M25.551 Pain in right hip; R20.2 Paresthesia of skin
CPT/HCPCS: 72110

== ENCOUNTER → 2023-09-13 | Outpatient (CLI) | payer MEDICARE, OTHER ==
[2023-09-13 16:50] LABS: African American GFR (CKD) 87 (>60 ml/min/1.73 sqM); Blood Urea Nitrogen 17 mg/dL (7-17); Non-African American GFR(CKD) 75 (>60 ml/min/1.73 sqM)
--- NOTE | 2023-09-13 19:55 | CT ---
EXAMINATION TYPE: CT abdomen pelvis w con DATE OF EXAM: 09/13/2023 COMPARISON: 11/03/2014 HISTORY: Right side abdominal pain and distention CT DLP: 512.0 mGycm Automated exposure control for dose reduction was used. TECHNIQUE: Helical acquisition of images was performed from the lung bases through the pelvis. CONTRAST: Performed with Oral Contrast and with IV Contrast, patient injected with 100 mL of Isovue 300. FINDINGS: The lung bases are clear. There is surgical absence of the gallbladder. There is no biliary ductal dilatation. There is no focal mass or organomegaly involving the liver, pancreas, spleen or adrenal glands. There is no solid renal mass or hydronephrosis and there is homogeneous contrast enhancement of the r enal parenchyma. The caliber the abdominal aorta is normal is no retroperitoneal adenopathy or hemorr tim. The bowel loops are normal in caliber and there is no evidence of dilatation or obstruction. No infla mmatory changes are identified in the bowel wall or mesentery. There is no free intraperitoneal air or fluid. No pelvic mass, free fluid, abscess or adenopathy. The osseous structures and soft tissues are intact. IMPRESSION: No significant abnormality seen.
== END | disposition home or self-care (01) ==
LOC: RADCTMAIN 15:36
PROVIDERS: ATTEND Family Medicine
DX: R10.811 Right upper quadrant abdominal tenderness (principal); R14.0 Abdominal distension (gaseous); R20.2 Paresthesia of skin; M54.6 Pain in thoracic spine
CPT/HCPCS: 82565; 84520; 74177; 36415; Q9967

== ENCOUNTER → 2024-04-03 | Outpatient (CLI) | payer MEDICARE, OTHER ==
--- NOTE | 2024-04-03 14:03 | XR ---
EXAMINATION TYPE: XR chest 2V DATE OF EXAM: 04/03/2024 2:00 PM COMPARISON: None CLINICAL INDICATION: Female, 78 years old with history of R05.3 COUGH; PHH TECHNIQUE: XR chest 2V Frontal and lateral views of the chest. FINDINGS: Lungs/Pleura: There is no evidence of pleural effusion, focal consolidation, or pneumothorax. Pulmonary vascularity: Unremarkable. Heart/mediastinum: Cardiomediastinal silhouette is unremarkable. Musculoskeletal: No acute osseous pathology. Other findings: None IMPRESSION: No acute cardiopulmonary disease/process. [facility], , 04/03/2024 2:01 PM
== END | disposition home or self-care (01) ==
LOC: RADXRMAIN 13:46
PROVIDERS: ATTEND Family Medicine
DX: R05.3 Chronic cough (principal)
CPT/HCPCS: 71046

== ENCOUNTER → 2024-04-23 | Outpatient (CLI) | payer MEDICARE, OTHER ==
[2024-04-23 16:27] LABS: HCT 44.2 % (37.2-46.3); HGB 15.1 g/dL (12.0-15.0); Immature Platelet Fraction 6.6 % (1.1-6.1); MCH 31.2 pg (27.0-32.0); MCHC 34.2 g/dL (32.0-37.0); MCV 91.3 FL (80.0-97.0); Mean Platelet Volume 11.3 FL (9.5-12.2); NRBC Per 100 WBC 0 X 10*3/uL (0.00-0.01); Platelet Count 178 X 10*3/uL (140-440); RBC 4.84 X 10*6/uL (4.10-5.20); RBC Morphology Normal (Normal); RDW 12.9 % (11.5-14.5); WBC 4.89 X 10*3/uL (4.50-10.00)
[2024-04-23 16:32] LABS: ALT 26 U/L (8-44); AST 26 U/L (13-35); Albumin 4.5 g/dL (3.8-4.9); Albumin/Globulin Ratio 2.05 Ratio (1.60-3.17); Alkaline Phosphatase 76 U/L (41-126); BUN/Creat Ratio 15.67 Ratio (12.00-20.00); Blood Urea Nitrogen 14.1 mg/dL (9.0-27.0); Calcium 9.7 mg/dL (8.7-10.3); Carbon Dioxide 25.3 mmol/L (21.6-31.8); Chloride 103 mmol/L (96-109); Chol/HDL Ratio 4.07 Ratio; Globulin 2.2 g/dL (1.6-3.3); Glucose 106 mg/dL (70-110); LDL Cholesterol,Calculated 153.3 mg/dL (0.0-131.0); Potassium 4.5 mmol/L (3.5-5.5); Sodium 139 mmol/L (135-145); Total Protein 6.7 g/dL (6.2-8.2)
== END | disposition home or self-care (01) ==
LOC: LABWHC1 08:24
PROVIDERS: ATTEND Family Medicine
DX: Z00.00 Encounter for general adult medical examination without abnormal findings (principal); E78.00 Pure hypercholesterolemia, unspecified; E55.9 Vitamin D deficiency, unspecified
CPT/HCPCS: 36415; 80053; 80061; 82306; 83036; 84443; 85027

== ENCOUNTER → 2024-05-28 | Outpatient (CLI) | payer MEDICARE, OTHER ==
--- NOTE | 2024-05-28 12:50 | MM ---
Reason for Exam: Screening (asymptomatic). Last mammogram was performed 1 year(s) and 1 month(s) ago. Patient History: Menarche at age 16. First Full-Term at age 31. Late child-bearing (after 30). Postmenopausal. Patient has history of breast feeding. Patient used Estrogen for 3 years. Patient used Progesterone for 3 years. 07/2010, Benign Excisional Biopsy on the left side. Risk Values: Sarah 5 year model risk: 2.6%. NCI Lifetime model risk: 4.9%. Prior Study Comparison: 04/19/2021 Bilateral Screening Mammogram, [facility]. 04/21/2022 Bilateral MG 3D screening mammo w/cad, [facility]. 04/23/2023 Bilateral MG 3D screening mammo w/cad, [facility]. Tissue Density: There are scattered areas of fibroglandular density. Findings: Analyzed By CAD. A few scattered tiny benign complications bilaterally are redemonstrated. There is no suspicious group of microcalcifications or new suspicious mass in either breast. Overall Assessment: Benign, BI-RAD 2 Management: Screening Mammogram of both breasts in 1 year. . Patient should continue monthly self-breast exams. A clinical breast exam by your physician is recommended on an annual basis. This exam should not preclude additional follow-up of suspicious palpable abnormalities. Note on Sarah scores and lifetime risk: 1. A Sarah score greater than 3% is considered moderate risk. If this is the case, consider specialist referral to assess eligibility for a risk reducing agent. 2. If overall lifetime risk for the development of breast cancer is 20% or higher, the patient may qualify for future screening with alternating mammogram and breast MRI. [facility], , 05/28/2024 12:47 PM. Electronically signed and approved by: Perez Rojo M.D.
== END | disposition home or self-care (01) ==
LOC: RADMAMWWP 08:29
PROVIDERS: ATTEND Family Medicine
DX: Z12.31 Encounter for screening mammogram for malignant neoplasm of breast (principal); Z78.0 Asymptomatic menopausal state; R92.323 Mammographic fibroglandular density, bilateral breasts
CPT/HCPCS: 77063; 77067

== ENCOUNTER → 2024-08-26 | Outpatient (CLI) | payer MEDICARE, OTHER ==
--- NOTE | 2024-08-26 10:15 | US ---
EXAMINATION TYPE: US liver DATE OF EXAM: 08/26/2024 COMPARISON: US 2023 CLINICAL INDICATION: Female, 78 years old with history of K76.0 FATTY LIVER; Fatty liver TECHNIQUE: Grayscale and color Doppler imaging of the right upper quadrant was performed. FINDINGS: EXAM MEASUREMENTS: Liver Length: 13.0 cm Gallbladder: Surgically absent CBD: 0.4 cm Right Kidney: 9.6 x 4.0 x 4.8 cm SPOT WELDER BODY ASSEMBLY NOTES: Exam limited by bowel gas. Pancreas: Most of the pancreas is visualized and shows no gross abnormality. Liver: Overall homogeneous without focal lesion. Gallbladder: Surgically absent Evidence for sonographic Heath's sign: No CBD: wnl Right Kidney: wnl IMPRESSION: Status post cholecystectomy. No biliary ductal dilatation. By ultrasound, the overall echotexture of the liver appears fairly normal. [facility], , 08/26/2024 10:13 AM
[2024-08-26 14:05] LABS: HCT 43.1 % (37.2-46.3); HGB 14.8 g/dL (12.0-15.0); MCH 31.4 pg (27.0-32.0); MCV 91.5 fL (80.0-97.0); RBC 4.71 10*6/uL (4.10-5.20); WBC 5.27 10*3/uL (4.50-10.00)
[2024-08-26 14:06] LABS: MCHC 34.3 g/dL (32.0-37.0)
[2024-08-26 14:07] LABS: Mean Platelet Volume 11.4 fL (9.5-12.2); Platelet Count 167 10*3/uL (140-440); RDW 12.5 % (11.5-14.5)
[2024-08-26 14:09] LABS: Neutrophils % (A) 43.1 %
[2024-08-26 14:10] LABS: Basophils % (A) 0.9 %; Eosinophils % (A) 5.3 %; Lymphocytes % (A) 37.6 %; Monocytes % (A) 12.5 %; Neutrophils # (A) 2.27 10*3/uL (1.80-7.70)
[2024-08-26 14:11] LABS: Eosinophils # (A) 0.28 10*3/uL (0.04-0.35); Lymphocytes # (A) 1.98 10*3/uL (0.90-5.00); Monocytes # (A) 0.66 10*3/uL (0.20-1.00)
[2024-08-26 14:12] LABS: Basophils # (A) 0.05 10*3/uL (0.00-0.10)
[2024-08-26 15:20] LABS: Albumin 4.3 g/dL (3.8-4.9); Albumin/Globulin Ratio 2.05 Ratio (1.60-3.17); BUN/Creat Ratio 16.38 Ratio (12.00-20.00); Blood Urea Nitrogen 13.1 mg/dL (9.0-27.0); Calcium 9.5 mg/dL (8.7-10.3); Carbon Dioxide 26.3 mmol/L (21.6-31.8); Chloride 103 mmol/L (96-109); Globulin 2.1 g/dL (1.6-3.3); Glucose 99 mg/dL (70-110); Potassium 4.7 mmol/L (3.5-5.5); Sodium 141 mmol/L (135-145); Total Bilirubin 0.8 mg/dL (0.3-1.2); Total Protein 6.4 g/dL (6.2-8.2)
[2024-08-26 15:21] LABS: ALT 18 U/L (8-44); AST 21 U/L (13-35); Alkaline Phosphatase 86 U/L (41-126)
== END | disposition home or self-care (01) ==
LOC: RADUSWWP 08:29
PROVIDERS: ATTEND Internal Medicine Gastroenterology
DX: K76.0 Fatty (change of) liver, not elsewhere classified (principal); Z90.49 Acquired absence of other specified parts of digestive tract
CPT/HCPCS: 76705; 80053; 85025